=== PATIENT | male | born 1980 | race Caucasian/White ===

== ENCOUNTER 2018-01-21 14:02 | Inpatient (IN) | payer MEDICAID ==
[~2018-01-21] VITALS: Ht 182.9 cm; Wt 78.9 kg
[~2018-01-21 14:02] MED LIST: BUSP15 PO; CEPH500 PO; QUET100T PO; QUET200XR PO; SULF1TAB42 PO
[2018-01-21 17:25] VITALS: BP 115/71
[2018-01-21] MEDS ORDERED: PETROLATUM,WHITE 71 GM JELLY TP PRN (18:15)
[2018-01-21] MEDS ORDERED: ONDANSETRON HCL 4 MG TABLET PO PRN (18:15)
[2018-01-21] MEDS ORDERED: MAG HYDROX/AL HYDROX/SIMETH ES 30 ML SUSPENSION UDCUP PO PRN (18:15)
[2018-01-21] MEDS ORDERED: CloNIDine HCL 0.1 MG TABLET PO PRN (18:15)
[2018-01-21] MEDS ORDERED: LOPERAMIDE HCL 2 MG CAPSULE PO PRN (18:15)
[2018-01-21] MEDS ORDERED: NICOTINE 14 MG/24 HOUR PATCH TD PRN (18:15)
[2018-01-21] MEDS ORDERED: IBUPROFEN 400 MG TABLET PO PRN (18:15)
[2018-01-21] MEDS ORDERED: DOCUSATE SODIUM 100 MG CAPSULE PO PRN (18:15)
[2018-01-21] MEDS ORDERED: ALBUTEROL SULFATE HFA 90 MCG/PUFF 8 GM INHALER IH PRN (18:15)
[2018-01-21] MEDS ORDERED: GuaiFENesin/D-METHORPHAN [SUGAR-FREE] 200-20MG/10 ML SYRUP UDCUP PO PRN (18:15)
[2018-01-21] MEDS ORDERED: ACETAMINOPHEN 325 MG TABLET PO PRN (18:15)
[2018-01-21] MEDS ORDERED: MAGNESIUM HYDROXIDE SUSPENSION 30 ML UDCUP PO PRN (18:15)
[2018-01-22 02:45] VITALS: BP 120/81
[2018-01-22 08:00] VITALS: BP 105/68
[2018-01-22] MEDS: METHADONE HCL 10 MG TABLET PO SCH (08:49)
[2018-01-22] MEDS: NICOTINE 14 MG/24 HOUR PATCH TD SCH (08:51)
[2018-01-22] MEDS: BusPIRone HCL 15 MG TABLET PO SCH ×2 (11:43→16:12)
[2018-01-22] MEDS: LORazepam 2 MG TABLET PO PRN (12:20)
[2018-01-22] MEDS: HALOPERIDOL 5 MG TABLET PO PRN (16:20)
[2018-01-22 17:14] VITALS: BP 106/78
[2018-01-22] MEDS: QUEtiapine FUMARATE 200 MG ER TABLET PO SCH (20:00)
[2018-01-23 06:49] VITALS: BP 112/70
[2018-01-23 08:04] VITALS: BP 109/65
[2018-01-23] MEDS: METHADONE HCL 10 MG TABLET PO SCH (08:38)
[2018-01-23] MEDS: NICOTINE 14 MG/24 HOUR PATCH TD SCH ×2 (08:41→09:00)
[2018-01-23] MEDS: QUEtiapine FUMARATE 100 MG TABLET PO SCH (08:41)
[2018-01-23] MEDS: BusPIRone HCL 15 MG TABLET PO SCH ×2 (08:41→16:08)
[2018-01-23 16:05] VITALS: BP 101/60
[2018-01-23] MEDS: QUEtiapine FUMARATE 200 MG ER TABLET PO SCH (20:01)
[2018-01-23] MEDS: LORazepam 2 MG TABLET PO PRN (20:09)
[2018-01-23] MEDS: ZOLPIDEM TARTRATE 10 MG TABLET PO PRN (21:30)
[2018-01-24 06:42] VITALS: BP 110/68
[2018-01-24 08:21] VITALS: BP 98/70
[2018-01-24] MEDS: BusPIRone HCL 15 MG TABLET PO SCH ×2 (08:37→16:04)
[2018-01-24] MEDS: METHADONE HCL 10 MG TABLET PO SCH (08:38)
[2018-01-24] MEDS: QUEtiapine FUMARATE 100 MG TABLET PO SCH (08:38)
[2018-01-24 08:51] VITALS: BP 114/68
[2018-01-24] MEDS: NICOTINE 14 MG/24 HOUR PATCH TD SCH (09:00)
[2018-01-24] MEDS: LORazepam 2 MG TABLET PO PRN (11:28)
[2018-01-24] MEDS: HALOPERIDOL 5 MG TABLET PO PRN (16:04)
[2018-01-24 16:17] VITALS: BP 101/68
[2018-01-24] MEDS: QUEtiapine FUMARATE 200 MG ER TABLET PO SCH (20:05)
[2018-01-25 05:40] VITALS: BP 110/68
[2018-01-25] MEDS: METHADONE HCL 10 MG TABLET PO SCH (08:26)
[2018-01-25] MEDS: BusPIRone HCL 15 MG TABLET PO SCH ×2 (08:27→16:15)
[2018-01-25] MEDS: QUEtiapine FUMARATE 100 MG TABLET PO SCH (08:27)
[2018-01-25] MEDS: NICOTINE 14 MG/24 HOUR PATCH TD SCH (08:27)
[2018-01-25 09:30] VITALS: BP 104/61
[2018-01-25 16:09] VITALS: BP 112/67
[2018-01-25] MEDS: LORazepam 2 MG TABLET PO PRN (18:46)
[2018-01-25] MEDS: QUEtiapine FUMARATE 200 MG ER TABLET PO SCH (20:06)
[2018-01-25] MEDS: ZOLPIDEM TARTRATE 10 MG TABLET PO PRN (21:25)
[2018-01-26 00:54] VITALS: BP 102/63
[2018-01-26] MEDS: BusPIRone HCL 15 MG TABLET PO SCH ×2 (11:01→16:30)
[2018-01-26] MEDS: METHADONE HCL 10 MG TABLET PO SCH (11:01)
[2018-01-26] MEDS: QUEtiapine FUMARATE 100 MG TABLET PO SCH ×2 (11:01→12:24)
[2018-01-26] MEDS ORDERED: NICOTINE 14 MG/24 HOUR PATCH TD PRN (11:15)
[2018-01-26 16:08] VITALS: BP 100/66
[2018-01-26] MEDS: LORazepam 2 MG TABLET PO PRN (18:38)
[2018-01-26] MEDS: HALOPERIDOL 5 MG TABLET PO PRN (18:38)
[2018-01-26] MEDS: QUEtiapine FUMARATE 200 MG ER TABLET PO SCH (20:01)
[2018-01-26] MEDS: ZOLPIDEM TARTRATE 10 MG TABLET PO PRN (20:43)
[2018-01-27 02:08] VITALS: BP 110/70
[2018-01-27 08:43] VITALS: BP 108/65
[2018-01-27] MEDS: BusPIRone HCL 15 MG TABLET PO SCH ×2 (08:56→16:06)
[2018-01-27] MEDS: QUEtiapine FUMARATE 100 MG TABLET PO SCH ×2 (08:56→12:41)
[2018-01-27] MEDS: METHADONE HCL 10 MG TABLET PO SCH (08:57)
[2018-01-27] MEDS: LORazepam 2 MG TABLET PO PRN (12:03)
[2018-01-27] MEDS: HALOPERIDOL 5 MG TABLET PO PRN (12:03)
[2018-01-27 16:34] VITALS: BP 109/68
[2018-01-27] MEDS: QUEtiapine FUMARATE 200 MG ER TABLET PO SCH (20:03)
[2018-01-27] MEDS: ZOLPIDEM TARTRATE 10 MG TABLET PO PRN (20:43)
[2018-01-28] MEDS ORDERED: QUET200XR PO (02:16)
[2018-01-28] MEDS ORDERED: QUET100T PO ×3 (02:16)
[2018-01-28] MEDS ORDERED: BUSP15 PO (02:16)
[2018-01-28 05:14] VITALS: BP 120/86
== END 2018-01-28 07:32 | disposition home or self-care (01) | DRG 753 ==
LOC: B2S 17:06
PROVIDERS: ADMIT Psychiatry & Neurology Child & Adolescent Psychiatry; ATTEND Psychiatry & Neurology Child & Adolescent Psychiatry
DX: F31.5 Bipolar disorder, current episode depressed, severe, with psychotic features (principal); R45.851 Suicidal ideations; F11.20 Opioid dependence, uncomplicated; M47.9 Spondylosis, unspecified; F41.9 Anxiety disorder, unspecified; F15.90 Other stimulant use, unspecified, uncomplicated; G47.00 Insomnia, unspecified; Z71.51 Drug abuse counseling and surveillance of drug abuser; Z59.0 Homelessness; Z88.0 Allergy status to penicillin; Z79.899 Other long term (current) drug therapy
CPT/HCPCS: 87081

== ENCOUNTER 2018-01-29 17:25 | Inpatient (IN) | payer MEDICAID ==
[~2018-01-29] VITALS: Ht 185.4 cm; Wt 78.7 kg
[~2018-01-29 17:25] MED LIST changes: -CEPH500 PO; -SULF1TAB42 PO
[2018-01-29 18:43] VITALS: BP 128/94
[2018-01-29 18:55] VITALS: BP 118/88
[2018-01-29] MEDS: LORazepam 2 MG TABLET PO PRN (19:14)
[2018-01-29] MEDS: HALOPERIDOL 5 MG TABLET PO PRN (20:03)
[2018-01-29] MEDS ORDERED: MAG HYDROX/AL HYDROX/SIMETH ES 30 ML SUSPENSION UDCUP PO PRN (20:15)
[2018-01-29] MEDS ORDERED: NICOTINE 14 MG/24 HOUR PATCH TD PRN (20:15)
[2018-01-29] MEDS ORDERED: CloNIDine HCL 0.1 MG TABLET PO PRN (20:15)
[2018-01-29] MEDS ORDERED: ONDANSETRON HCL 4 MG TABLET PO PRN (20:15)
[2018-01-29] MEDS ORDERED: DOCUSATE SODIUM 100 MG CAPSULE PO PRN (20:15)
[2018-01-29] MEDS ORDERED: MAGNESIUM HYDROXIDE SUSPENSION 30 ML UDCUP PO PRN (20:15)
[2018-01-29] MEDS ORDERED: IBUPROFEN 400 MG TABLET PO PRN (20:15)
[2018-01-29] MEDS ORDERED: GuaiFENesin/D-METHORPHAN [SUGAR-FREE] 200-20MG/10 ML SYRUP UDCUP PO PRN (20:15)
[2018-01-29] MEDS ORDERED: ALBUTEROL SULFATE HFA 90 MCG/PUFF 8 GM INHALER IH PRN (20:15)
[2018-01-29] MEDS ORDERED: LOPERAMIDE HCL 2 MG CAPSULE PO PRN (20:15)
[2018-01-29] MEDS ORDERED: ACETAMINOPHEN 325 MG TABLET PO PRN (20:15)
[2018-01-29] MEDS ORDERED: PETROLATUM,WHITE 71 GM JELLY TP PRN (20:15)
[2018-01-29] MEDS: ZOLPIDEM TARTRATE 10 MG TABLET PO PRN (20:25)
[2018-01-30 05:37] VITALS: BP 122/84
[2018-01-30 08:14] VITALS: BP 104/64
[2018-01-30] MEDS: NEOMYCIN/BACITRACIN/POLYMYXIN B 30 GM OINTMENT TP SCH ×2 (08:41→16:14)
[2018-01-30] MEDS: METHADONE HCL 10 MG/5 ML SOLUTION ORAL.SYG PO SCH (08:42)
[2018-01-30] MEDS ORDERED: METHADONE HCL 10 MG TABLET PO SCH (09:00)
[2018-01-30] MEDS ORDERED: BACITRACIN 28.4 GM OINTMENT TP SCH (09:00)
[2018-01-30] MEDS: BusPIRone HCL 15 MG TABLET PO SCH ×2 (11:51→16:13)
[2018-01-30] MEDS: QUEtiapine FUMARATE 100 MG TABLET PO SCH (11:51)
[2018-01-30 16:11] VITALS: BP 101/61
[2018-01-30] MEDS: QUEtiapine FUMARATE 200 MG ER TABLET PO SCH (20:29)
[2018-01-30] MEDS: CEPHALEXIN MONOHYDRATE 500 MG CAPSULE PO SCH (20:29)
[2018-01-30] MEDS: LORazepam 2 MG TABLET PO PRN (20:29)
[2018-01-31 01:52] VITALS: BP 108/68
[2018-01-31 08:01] VITALS: BP 98/60
[2018-01-31] MEDS: METHADONE HCL 10 MG/5 ML SOLUTION ORAL.SYG PO SCH (08:25)
[2018-01-31] MEDS: QUEtiapine FUMARATE 100 MG TABLET PO SCH ×2 (08:30→11:56)
[2018-01-31] MEDS: CEPHALEXIN MONOHYDRATE 500 MG CAPSULE PO SCH ×4 (08:31→20:44)
[2018-01-31] MEDS: BusPIRone HCL 15 MG TABLET PO SCH ×2 (08:31→16:14)
[2018-01-31 08:53] VITALS: BP 100/72
[2018-01-31] MEDS: NEOMYCIN/BACITRACIN/POLYMYXIN B 30 GM OINTMENT TP SCH ×2 (09:22→16:14)
[2018-01-31 16:03] VITALS: BP 102/72
[2018-01-31] MEDS: LORazepam 2 MG TABLET PO PRN (20:44)
[2018-01-31] MEDS: QUEtiapine FUMARATE 200 MG ER TABLET PO SCH (20:44)
[2018-02-01 00:03] VITALS: BP 109/62
[2018-02-01 08:00] VITALS: BP 118/72
[2018-02-01] MEDS: CEPHALEXIN MONOHYDRATE 500 MG CAPSULE PO SCH ×4 (09:01→20:10)
[2018-02-01] MEDS: QUEtiapine FUMARATE 100 MG TABLET PO SCH ×2 (09:01→12:07)
[2018-02-01] MEDS: METHADONE HCL 10 MG/5 ML SOLUTION ORAL.SYG PO SCH (09:01)
[2018-02-01] MEDS: NEOMYCIN/BACITRACIN/POLYMYXIN B 30 GM OINTMENT TP SCH ×2 (09:02→16:53)
[2018-02-01] MEDS: BusPIRone HCL 15 MG TABLET PO SCH ×2 (09:02→16:05)
[2018-02-01] MEDS: HALOPERIDOL 5 MG TABLET PO PRN (16:05)
[2018-02-01] MEDS: LORazepam 2 MG TABLET PO PRN (16:05)
[2018-02-01 16:07] VITALS: BP 118/80
[2018-02-01] MEDS: QUEtiapine FUMARATE 200 MG ER TABLET PO SCH (20:10)
[2018-02-01] MEDS: ZOLPIDEM TARTRATE 10 MG TABLET PO PRN (20:41)
[2018-02-02] VITALS: BP 113/70
[2018-02-02 08:08] VITALS: BP 100/60
[2018-02-02] MEDS: METHADONE HCL 10 MG/5 ML SOLUTION ORAL.SYG PO SCH (08:57)
[2018-02-02] MEDS: BusPIRone HCL 15 MG TABLET PO SCH ×2 (08:59→16:10)
[2018-02-02] MEDS: NEOMYCIN/BACITRACIN/POLYMYXIN B 30 GM OINTMENT TP SCH ×2 (09:00→17:44)
[2018-02-02] MEDS: QUEtiapine FUMARATE 100 MG TABLET PO SCH ×2 (09:00→12:11)
[2018-02-02] MEDS: CEPHALEXIN MONOHYDRATE 500 MG CAPSULE PO SCH ×4 (09:00→20:29)
[2018-02-02] MEDS: LORazepam 2 MG TABLET PO PRN (13:21)
[2018-02-02 16:09] VITALS: BP 121/65
[2018-02-02] MEDS: QUEtiapine FUMARATE 200 MG ER TABLET PO SCH (20:29)
[2018-02-02] MEDS: ZOLPIDEM TARTRATE 10 MG TABLET PO PRN (20:29)
[2018-02-03 01:14] VITALS: BP 113/60
[2018-02-03 08:15] VITALS: BP 100/61
[2018-02-03] MEDS: METHADONE HCL 10 MG/5 ML SOLUTION ORAL.SYG PO SCH (09:18)
[2018-02-03] MEDS: BusPIRone HCL 15 MG TABLET PO SCH ×2 (09:18→16:01)
[2018-02-03] MEDS: CEPHALEXIN MONOHYDRATE 500 MG CAPSULE PO SCH ×4 (09:19→20:25)
[2018-02-03] MEDS: QUEtiapine FUMARATE 100 MG TABLET PO SCH ×2 (09:19→12:24)
[2018-02-03] MEDS: NEOMYCIN/BACITRACIN/POLYMYXIN B 30 GM OINTMENT TP SCH ×2 (09:19→16:01)
[2018-02-03] MEDS: LORazepam 2 MG TABLET PO PRN ×2 (11:29→21:13)
[2018-02-03 16:00] VITALS: BP 103/63
[2018-02-03] MEDS: QUEtiapine FUMARATE 200 MG ER TABLET PO SCH (20:21)
[2018-02-03] MEDS: HALOPERIDOL 5 MG TABLET PO PRN (21:12)
[2018-02-03] MEDS: ZOLPIDEM TARTRATE 10 MG TABLET PO PRN (22:40)
[2018-02-04 01:27] VITALS: BP 102/63
[2018-02-04 08:23] VITALS: BP 107/53
[2018-02-04] MEDS: METHADONE HCL 10 MG/5 ML SOLUTION ORAL.SYG PO SCH (08:58)
[2018-02-04] MEDS: QUEtiapine FUMARATE 100 MG TABLET PO SCH ×2 (08:59→12:15)
[2018-02-04] MEDS: BusPIRone HCL 15 MG TABLET PO SCH ×2 (09:00→17:11)
[2018-02-04] MEDS: CEPHALEXIN MONOHYDRATE 500 MG CAPSULE PO SCH ×4 (09:00→21:23)
[2018-02-04] MEDS: NEOMYCIN/BACITRACIN/POLYMYXIN B 30 GM OINTMENT TP SCH ×2 (09:00→17:11)
[2018-02-04] MEDS: LORazepam 2 MG TABLET PO PRN ×2 (15:00→21:22)
[2018-02-04 19:30] VITALS: BP 97/62
[2018-02-04] MEDS: QUEtiapine FUMARATE 200 MG ER TABLET PO SCH (21:22)
[2018-02-04] MEDS: HALOPERIDOL 5 MG TABLET PO PRN (21:23)
[2018-02-04] MEDS: ZOLPIDEM TARTRATE 10 MG TABLET PO PRN (21:23)
[2018-02-05 01:44] VITALS: BP 109/68
[2018-02-05 08:54] VITALS: BP 115/62
[2018-02-05] MEDS: NEOMYCIN/BACITRACIN/POLYMYXIN B 30 GM OINTMENT TP SCH ×2 (09:00→17:51)
[2018-02-05] MEDS: QUEtiapine FUMARATE 100 MG TABLET PO SCH ×2 (09:02→12:26)
[2018-02-05] MEDS: METHADONE HCL 10 MG/5 ML SOLUTION ORAL.SYG PO SCH (09:02)
[2018-02-05] MEDS: CEPHALEXIN MONOHYDRATE 500 MG CAPSULE PO SCH ×4 (09:02→20:56)
[2018-02-05] MEDS: BusPIRone HCL 15 MG TABLET PO SCH ×2 (09:02→16:26)
[2018-02-05 16:18] VITALS: BP 104/65
[2018-02-05] MEDS: LORazepam 2 MG TABLET PO PRN (16:29)
[2018-02-05] MEDS: QUEtiapine FUMARATE 200 MG ER TABLET PO SCH (20:56)
[2018-02-06 01:05] VITALS: BP 105/63
[2018-02-06 05:00] VITALS: BP 106/71
[2018-02-06] MEDS: LORazepam 2 MG TABLET PO PRN ×2 (06:20→22:09)
[2018-02-06 08:23] VITALS: BP 112/60
[2018-02-06] MEDS: METHADONE HCL 10 MG/5 ML SOLUTION ORAL.SYG PO SCH (08:44)
[2018-02-06] MEDS: BusPIRone HCL 15 MG TABLET PO SCH ×3 (08:45→17:24)
[2018-02-06] MEDS: NEOMYCIN/BACITRACIN/POLYMYXIN B 30 GM OINTMENT TP SCH ×2 (08:46→17:24)
[2018-02-06] MEDS: QUEtiapine FUMARATE 100 MG TABLET PO SCH ×2 (08:46→12:06)
[2018-02-06] MEDS: CEPHALEXIN MONOHYDRATE 500 MG CAPSULE PO SCH ×3 (08:46→17:24)
[2018-02-06 16:14] VITALS: BP 108/78
[2018-02-06] MEDS: HALOPERIDOL 5 MG TABLET PO PRN (17:30)
[2018-02-06] MEDS: ZOLPIDEM TARTRATE 10 MG TABLET PO PRN (20:56)
[2018-02-06] MEDS: QUEtiapine FUMARATE 200 MG ER TABLET PO SCH (20:56)
[2018-02-07 01:00] VITALS: BP 116/74
[2018-02-07] MEDS: METHADONE HCL 10 MG/5 ML SOLUTION ORAL.SYG PO SCH (08:31)
[2018-02-07 08:35] VITALS: BP 111/64
[2018-02-07] MEDS: BusPIRone HCL 15 MG TABLET PO SCH ×3 (08:42→16:18)
[2018-02-07] MEDS: NEOMYCIN/BACITRACIN/POLYMYXIN B 30 GM OINTMENT TP SCH ×2 (08:43→17:13)
[2018-02-07] MEDS: QUEtiapine FUMARATE 200 MG TABLET PO SCH ×2 (08:43→16:18)
[2018-02-07] MEDS: HALOPERIDOL 5 MG TABLET PO PRN (10:21)
[2018-02-07] MEDS: LORazepam 2 MG TABLET PO PRN (10:21)
[2018-02-07 16:37] VITALS: BP 105/70
[2018-02-08 04:55] VITALS: BP 107/76
[2018-02-08] MEDS: LORazepam 2 MG TABLET PO PRN (07:03)
[2018-02-08 08:27] VITALS: BP 112/73
[2018-02-08] MEDS: BusPIRone HCL 15 MG TABLET PO SCH ×3 (09:57→16:47)
[2018-02-08] MEDS: QUEtiapine FUMARATE 200 MG TABLET PO SCH ×3 (09:58→16:48)
[2018-02-08] MEDS: METHADONE HCL 10 MG/5 ML SOLUTION ORAL.SYG PO SCH (09:59)
[2018-02-08] MEDS: NEOMYCIN/BACITRACIN/POLYMYXIN B 30 GM OINTMENT TP SCH ×2 (10:00→16:48)
[2018-02-08 16:33] VITALS: BP 103/63
[2018-02-09 00:50] VITALS: BP 110/74
[2018-02-09] MEDS: HALOPERIDOL 5 MG TABLET PO PRN (00:56)
[2018-02-09 08:11] VITALS: BP 104/68
[2018-02-09] MEDS: BusPIRone HCL 15 MG TABLET PO SCH (08:32)
[2018-02-09] MEDS: QUEtiapine FUMARATE 200 MG TABLET PO SCH (08:32)
== END 2018-02-09 12:15 | disposition home or self-care (01) | DRG 753 ==
LOC: B2S 18:34
PROVIDERS: ATTEND Psychiatry & Neurology Child & Adolescent Psychiatry
DX: F31.5 Bipolar disorder, current episode depressed, severe, with psychotic features (principal); R45.851 Suicidal ideations; Z59.0 Homelessness; F11.90 Opioid use, unspecified, uncomplicated; F15.90 Other stimulant use, unspecified, uncomplicated; F41.0 Panic disorder [episodic paroxysmal anxiety]; G47.00 Insomnia, unspecified; Z91.5 Personal history of self-harm; Z53.20 Procedure and treatment not carried out because of patient's decision for unspecified reasons
CPT/HCPCS: 87081

== ENCOUNTER 2018-02-10 13:57 | Inpatient (IN) | payer MEDICAID ==
[~2018-02-10] VITALS: Ht 185.4 cm; Wt 86.0 kg
[~2018-02-10 13:57] MED LIST changes: -QUET100T PO
[2018-02-10 15:44] VITALS: BP 107/82
[2018-02-10 17:20] VITALS: BP 120/86
[2018-02-10] MEDS ORDERED: MAG HYDROX/AL HYDROX/SIMETH ES 30 ML SUSPENSION UDCUP PO PRN (20:30)
[2018-02-10] MEDS ORDERED: ACETAMINOPHEN 325 MG TABLET PO PRN (20:30)
[2018-02-10] MEDS ORDERED: LOPERAMIDE HCL 2 MG CAPSULE PO PRN (20:30)
[2018-02-10] MEDS ORDERED: IBUPROFEN 400 MG TABLET PO PRN (20:30)
[2018-02-10] MEDS ORDERED: ALBUTEROL SULFATE HFA 90 MCG/PUFF 8 GM INHALER IH PRN (20:30)
[2018-02-10] MEDS ORDERED: ONDANSETRON HCL 4 MG TABLET PO PRN (20:30)
[2018-02-10] MEDS ORDERED: MAGNESIUM HYDROXIDE SUSPENSION 30 ML UDCUP PO PRN (20:30)
[2018-02-10] MEDS ORDERED: DOCUSATE SODIUM 100 MG CAPSULE PO PRN (20:30)
[2018-02-10] MEDS ORDERED: GuaiFENesin/D-METHORPHAN [SUGAR-FREE] 200-20MG/10 ML SYRUP UDCUP PO PRN (20:30)
[2018-02-10] MEDS ORDERED: CloNIDine HCL 0.1 MG TABLET PO PRN (20:30)
[2018-02-10] MEDS ORDERED: NICOTINE 14 MG/24 HOUR PATCH TD PRN (20:30)
[2018-02-10] MEDS ORDERED: PETROLATUM,WHITE 71 GM JELLY TP PRN (20:30)
[2018-02-10 20:32] VITALS: BP 110/77
[2018-02-11 03:12] VITALS: BP 101/73
[2018-02-11 07:41] LABS: BASOPHILS % (AUTO) 0.6 % (0.0-2.0); EOSINOPHILS % (AUTO) 3.2 % (1.0-6.0); HEMATOCRIT 35.3 % (41-53); HEMOGLOBIN 12.3 g/dL (13.5-17.5); LYMPHOCYTES # (AUTO) 1.4 K/uL (1.0-4.8); LYMPHOCYTES % (AUTO) 32.9 % (22.0-44.0); MEAN CORPUSCULAR HEMOGLOBIN 31.3 pg (26.0-34.0); MEAN CORPUSCULAR HGB CONC 34.9 G/dL (31.0-37.0); MEAN CORPUSCULAR VOLUME 90 fL (80-100); MONOCYTES # (AUTO) 0.6 K/uL (0.1-1.0); MONOCYTES % (AUTO) 12.8 % (2.0-9.0); NEUTROPHILS # (AUTO) 2.2 K/uL (1.8-7.7); NEUTROPHILS % (AUTO) 50.5 % (40.0-70.0); PLATELET COUNT (AUTO) 197 K/uL (150-450); RED BLOOD CELL COUNT(AUTO) 3.95 MIL/uL (4.50-5.90); RED CELL DISTRIBUTION WIDTH 14.6 % (11.5-14.5)
[2018-02-11 08:05] LABS: ALANINE AMINOTRANSFERASE 160 U/L (12-78); ALBUMIN 2.9 g/dL (3.4-5.0); ALKALINE PHOSPHATASE 73 U/L (46-116); ANION GAP 5 mmol/L (8-16); ASPARTATE AMINOTRANSFERASE 92 U/L (15-37); BILIRUBIN,TOTAL 0.4 mg/dL (0.1-1.0); CALCIUM, TOTAL 8.7 mg/dL (8.8-10.5); CARBON DIOXIDE 31 mmol/L (22-29); CHLORIDE 101 mmol/L (98-107); CHOL/HDL RATIO 3.2 (4.2-7.3); CHOLESTEROL 183 mg/dL (131-200); CREATININE 0.86 mg/dL (0.60-1.30); FREE T4 (FREE THYROXINE) 0.63 ng/dL (0.76-1.46); GLOMERULAR FILTR. RATE CALC > 60 mL/min (>60); GLUCOSE,RANDOM 92 mg/dL (70-110); HDL CHOLESTEROL 58 mg/dL (40-60); LDL CHOL (CALC.) 102 mg/dL (0-130); POTASSIUM 4.1 mmol/L (3.5-5.1); SODIUM SERUM 137 mmol/L (136-145); THYROID STIMULATING HORMONE 2.99 uIU/mL (0.36-3.74); TOTAL PROTEIN, SERUM 7.3 g/dL (6.4-8.2); TRIGLYCERIDES 116 mg/dL (15-150); UREA NITROGEN, BLOOD 18 mg/dL (7-18)
[2018-02-11 08:38] VITALS: BP 105/62
[2018-02-11] MEDS: NICOTINE 21 MG/24 HOUR PATCH TD SCH (08:55)
[2018-02-11] MEDS: QUEtiapine FUMARATE 200 MG ER TABLET PO SCH ×2 (11:20→16:09)
[2018-02-11] MEDS: FERROUS SULFATE 325 MG EC TABLET PO SCH ×2 (11:34→16:08)
[2018-02-11] MEDS: BusPIRone HCL 15 MG TABLET PO SCH ×2 (13:10→16:08)
[2018-02-11 16:16] VITALS: BP 132/81
[2018-02-12 01:08] VITALS: BP 108/63
[2018-02-12] MEDS: FERROUS SULFATE 325 MG EC TABLET PO SCH ×3 (07:08→16:09)
[2018-02-12 07:55] LABS: APPEARANCE,URINE CLEAR (CLEAR); BILIRUBIN,URINE NEGATIVE (NEGATIVE); GLUCOSE, URINE (UA) NEGATIVE (NEGATIVE); KETONES,URINE NEGATIVE (NEGATIVE); LEUKOCYTE ESTERASE ,URINE TRACE (NEGATIVE); NITRATE,URINE NEGATIVE (NEGATIVE); OCCULT BLOOD,URINE NEGATIVE (NEGATIVE); PH,URINE 6.5 (5.0-8.0); PROTEIN,URINE NEGATIVE (NEGATIVE)
[2018-02-12 08:25] LABS: BACTERIA,URINE None Seen /HPF (None Seen); RBC,URINE None Seen /HPF (0-2); SQUAMOUS EPITHELIAL CELL,UR Rare /LPF (None Seen); WBC,URINE 0-2 /HPF (0-5)
[2018-02-12] MEDS: NICOTINE 21 MG/24 HOUR PATCH TD SCH (08:31)
[2018-02-12] MEDS: QUEtiapine FUMARATE 200 MG ER TABLET PO SCH ×2 (08:31→16:09)
[2018-02-12] MEDS: BusPIRone HCL 15 MG TABLET PO SCH ×3 (08:31→16:09)
[2018-02-12 08:34] VITALS: BP 100/70
[2018-02-12 15:22] LABS: AMPHET/METH SCREEN,URINE NEGATIVE (NEGATIVE); BARBITURATE SCREEN, URINE NEGATIVE (NEGATIVE); BENZODIAZEPINES SCREEN,URINE POSITIVE (NEGATIVE); CANNABINOID SCREEN,URINE NEGATIVE (NEGATIVE); COCAINE SCREEN,URINE NEGATIVE (NEGATIVE); METHADONE SCREEN, URINE POSITIVE (NEGATIVE); OPIATE SCREEN,URINE POSITIVE (NEGATIVE); PHENCYCLIDINE SCREEN,URINE NEGATIVE (NEGATIVE)
[2018-02-12] MEDS ORDERED: METHADONE HCL 10 MG TABLET PO ONE (16:00)
[2018-02-12 16:50] VITALS: BP 115/67
[2018-02-12] MEDS: LORazepam 1 MG TABLET PO PRN (18:58)
[2018-02-13] MEDS: FERROUS SULFATE 325 MG EC TABLET PO SCH ×3 (06:49→16:35)
[2018-02-13 08:47] VITALS: BP 107/62
[2018-02-13] MEDS: NICOTINE 21 MG/24 HOUR PATCH TD SCH (09:00)
[2018-02-13] MEDS: QUEtiapine FUMARATE 200 MG ER TABLET PO SCH ×2 (09:30→16:35)
[2018-02-13] MEDS: BusPIRone HCL 15 MG TABLET PO SCH ×3 (09:31→16:35)
[2018-02-13] MEDS: METHADONE HCL 10 MG TABLET PO SCH (09:31)
[2018-02-13] MEDS: LORazepam 1 MG TABLET PO PRN ×2 (11:03→15:54)
[2018-02-13 16:22] VITALS: BP 112/73
[2018-02-14 03:35] VITALS: BP 117/80
[2018-02-14] MEDS: FERROUS SULFATE 325 MG EC TABLET PO SCH ×3 (06:25→16:50)
[2018-02-14 08:14] VITALS: BP 110/78
[2018-02-14] MEDS: NICOTINE 21 MG/24 HOUR PATCH TD SCH (09:00)
[2018-02-14] MEDS: QUEtiapine FUMARATE 200 MG ER TABLET PO SCH ×2 (09:18→16:48)
[2018-02-14] MEDS: METHADONE HCL 10 MG TABLET PO SCH (09:18)
[2018-02-14] MEDS: BusPIRone HCL 15 MG TABLET PO SCH ×3 (09:18→16:48)
[2018-02-14] MEDS: LORazepam 1 MG TABLET PO PRN ×3 (13:10→21:49)
[2018-02-14 17:27] VITALS: BP 110/80
[2018-02-15 04:07] VITALS: BP 100/72
[2018-02-15] MEDS: FERROUS SULFATE 325 MG EC TABLET PO SCH ×3 (06:33→16:09)
[2018-02-15 08:25] VITALS: BP 102/62
[2018-02-15] MEDS: NICOTINE 21 MG/24 HOUR PATCH TD SCH (09:00)
[2018-02-15] MEDS: BusPIRone HCL 15 MG TABLET PO SCH ×3 (09:28→16:09)
[2018-02-15] MEDS: QUEtiapine FUMARATE 200 MG ER TABLET PO SCH ×2 (09:28→16:09)
[2018-02-15] MEDS: METHADONE HCL 10 MG TABLET PO SCH (09:29)
[2018-02-15 10:00] VITALS: BP 118/88
[2018-02-15] MEDS: LORazepam 1 MG TABLET PO PRN ×3 (10:18→20:07)
[2018-02-15 16:34] VITALS: BP 108/62
[2018-02-16 05:26] VITALS: BP 114/72
[2018-02-16] MEDS: FERROUS SULFATE 325 MG EC TABLET PO SCH ×2 (06:41→11:18)
[2018-02-16] MEDS ORDERED: FERR325T22 PO (08:00)
[2018-02-16 08:20] VITALS: BP 115/69
[2018-02-16] MEDS: QUEtiapine FUMARATE 200 MG ER TABLET PO SCH (08:25)
[2018-02-16] MEDS: BusPIRone HCL 15 MG TABLET PO SCH ×2 (08:25→12:25)
[2018-02-16] MEDS: METHADONE HCL 10 MG TABLET PO SCH (08:25)
[2018-02-16 08:27] LABS: BASOPHILS % (AUTO) 0.6 % (0.0-2.0); EOSINOPHILS % (AUTO) 3.7 % (1.0-6.0); HEMATOCRIT 37.6 % (41-53); LYMPHOCYTES # (AUTO) 1.5 K/uL (1.0-4.8); LYMPHOCYTES % (AUTO) 39.8 % (22.0-44.0); MEAN CORPUSCULAR HEMOGLOBIN 30.8 pg (26.0-34.0); MEAN CORPUSCULAR HGB CONC 34.5 G/dL (31.0-37.0); MEAN CORPUSCULAR VOLUME 90 fL (80-100); MONOCYTES # (AUTO) 0.6 K/uL (0.1-1.0); MONOCYTES % (AUTO) 14.5 % (2.0-9.0); NEUTROPHILS # (AUTO) 1.6 K/uL (1.8-7.7); NEUTROPHILS % (AUTO) 41.4 % (40.0-70.0); PLATELET COUNT (AUTO) 231 K/uL (150-450); RED CELL DISTRIBUTION WIDTH 14.6 % (11.5-14.5)
[2018-02-16] MEDS: NICOTINE 21 MG/24 HOUR PATCH TD SCH (08:30)
[2018-02-16] MEDS: LORazepam 1 MG TABLET PO PRN (08:30)
== END 2018-02-16 14:10 | disposition home or self-care (01) | DRG 753 ==
LOC: B2S 16:26
PROVIDERS: ADMIT Psychiatry & Neurology Child & Adolescent Psychiatry; ATTEND Psychiatry & Neurology Child & Adolescent Psychiatry
DX: F31.4 Bipolar disorder, current episode depressed, severe, without psychotic features (principal); F11.20 Opioid dependence, uncomplicated; F41.9 Anxiety disorder, unspecified; D64.9 Anemia, unspecified; G47.00 Insomnia, unspecified; D72.819 Decreased white blood cell count, unspecified; F19.10 Other psychoactive substance abuse, uncomplicated; B19.20 Unspecified viral hepatitis C without hepatic coma; F15.90 Other stimulant use, unspecified, uncomplicated; F20.9 Schizophrenia, unspecified; M19.90 Unspecified osteoarthritis, unspecified site; Z71.51 Drug abuse counseling and surveillance of drug abuser; Z88.0 Allergy status to penicillin
CPT/HCPCS: 80307; 83036; 84439; 84443; 87081

== ENCOUNTER 2018-02-22 15:22 | Inpatient (IN) | payer MEDICAID ==
[~2018-02-22] VITALS: Ht 185.4 cm; Wt 85.8 kg
[~2018-02-22 15:22] MED LIST changes: +FERR325T22 PO
[2018-02-22 16:46] VITALS: BP 129/75
[2018-02-22] MEDS: LORazepam 2 MG TABLET PO PRN (17:29)
[2018-02-22] MEDS ORDERED: IBUPROFEN 400 MG TABLET PO PRN (19:30)
[2018-02-22] MEDS ORDERED: MAG HYDROX/AL HYDROX/SIMETH ES 30 ML SUSPENSION UDCUP PO PRN (19:30)
[2018-02-22] MEDS ORDERED: PETROLATUM,WHITE 71 GM JELLY TP PRN (19:30)
[2018-02-22] MEDS ORDERED: CloNIDine HCL 0.1 MG TABLET PO PRN (19:30)
[2018-02-22] MEDS ORDERED: LOPERAMIDE HCL 2 MG CAPSULE PO PRN (19:30)
[2018-02-22] MEDS ORDERED: ALBUTEROL SULFATE HFA 90 MCG/PUFF 8 GM INHALER IH PRN (19:30)
[2018-02-22] MEDS ORDERED: GuaiFENesin/D-METHORPHAN [SUGAR-FREE] 200-20MG/10 ML SYRUP UDCUP PO PRN (19:30)
[2018-02-22] MEDS ORDERED: ACETAMINOPHEN 325 MG TABLET PO PRN (19:30)
[2018-02-22] MEDS ORDERED: MAGNESIUM HYDROXIDE SUSPENSION 30 ML UDCUP PO PRN (19:30)
[2018-02-22] MEDS ORDERED: DOCUSATE SODIUM 100 MG CAPSULE PO PRN (19:30)
[2018-02-22] MEDS ORDERED: NICOTINE POLACRILEX 2 MG LOZENGE PO PRN (19:30)
[2018-02-22] MEDS ORDERED: ONDANSETRON HCL 4 MG TABLET PO PRN (19:30)
[2018-02-22] MEDS: ZOLPIDEM TARTRATE 10 MG TABLET PO PRN (20:11)
[2018-02-23 02:22] VITALS: BP 106/60
[2018-02-23 06:15] VITALS: BP 108/84
[2018-02-23] MEDS: LORazepam 2 MG TABLET PO PRN ×3 (06:31→16:44)
[2018-02-23 08:13] VITALS: BP 100/62
[2018-02-23 08:35] LABS: BASOPHILS % (AUTO) 0.5 % (0.0-2.0); EOSINOPHILS % (AUTO) 4.5 % (1.0-6.0); HEMATOCRIT 37.3 % (41-53); HEMOGLOBIN 12.7 g/dL (13.5-17.5); LYMPHOCYTES # (AUTO) 1.5 K/uL (1.0-4.8); LYMPHOCYTES % (AUTO) 45.2 % (22.0-44.0); MEAN CORPUSCULAR HEMOGLOBIN 31.2 pg (26.0-34.0); MEAN CORPUSCULAR HGB CONC 34.2 G/dL (31.0-37.0); MEAN CORPUSCULAR VOLUME 92 fL (80-100); MONOCYTES # (AUTO) 0.5 K/uL (0.1-1.0); MONOCYTES % (AUTO) 15.4 % (2.0-9.0); NEUTROPHILS # (AUTO) 1.1 K/uL (1.8-7.7); NEUTROPHILS % (AUTO) 34.4 % (40.0-70.0); PLATELET COUNT (AUTO) 256 K/uL (150-450); RED BLOOD CELL COUNT(AUTO) 4.08 MIL/uL (4.50-5.90); RED CELL DISTRIBUTION WIDTH 15.1 % (11.5-14.5)
[2018-02-23 08:41] LABS: HEMOGLOBIN A1C 4.9 % (4.5-6.2)
[2018-02-23 08:44] LABS: AMPHET/METH SCREEN,URINE POSITIVE (NEGATIVE); BARBITURATE SCREEN, URINE NEGATIVE (NEGATIVE); BENZODIAZEPINES SCREEN,URINE NEGATIVE (NEGATIVE); CANNABINOID SCREEN,URINE NEGATIVE (NEGATIVE); COCAINE SCREEN,URINE NEGATIVE (NEGATIVE); METHADONE SCREEN, URINE POSITIVE (NEGATIVE); OPIATE SCREEN,URINE POSITIVE (NEGATIVE)
[2018-02-23 08:48] LABS: PHENCYCLIDINE SCREEN,URINE NEGATIVE (NEGATIVE)
[2018-02-23] MEDS: NICOTINE 21 MG/24 HOUR PATCH TD SCH (09:00)
[2018-02-23] MEDS ORDERED: METHADONE HCL 10 MG TABLET PO SCH (09:00)
[2018-02-23 09:04] LABS: APPEARANCE,URINE TURBID (CLEAR); BILIRUBIN,URINE NEGATIVE (NEGATIVE); GLUCOSE, URINE (UA) NEGATIVE (NEGATIVE); KETONES,URINE NEGATIVE (NEGATIVE); LEUKOCYTE ESTERASE ,URINE NEGATIVE (NEGATIVE); NITRATE,URINE NEGATIVE (NEGATIVE); OCCULT BLOOD,URINE NEGATIVE (NEGATIVE); PROTEIN,URINE NEGATIVE (NEGATIVE)
[2018-02-23 09:14] LABS: ALANINE AMINOTRANSFERASE 247 U/L (12-78); ALBUMIN 3.2 g/dL (3.4-5.0); ALKALINE PHOSPHATASE 83 U/L (46-116); ANION GAP 6 mmol/L (8-16); ASPARTATE AMINOTRANSFERASE 133 U/L (15-37); BILIRUBIN,TOTAL 0.5 mg/dL (0.1-1.0); CALCIUM, TOTAL 8.9 mg/dL (8.8-10.5); CARBON DIOXIDE 29 mmol/L (22-29); CHLORIDE 102 mmol/L (98-107); CHOL/HDL RATIO 2.8 (4.2-7.3); CHOLESTEROL 171 mg/dL (131-200); CREATININE 0.74 mg/dL (0.60-1.30); FREE T4 (FREE THYROXINE) 0.77 ng/dL (0.76-1.46); GLOMERULAR FILTR. RATE CALC > 60 mL/min (>60); GLUCOSE,RANDOM 83 mg/dL (70-110); HDL CHOLESTEROL 62 mg/dL (40-60); LDL CHOL (CALC.) 94 mg/dL (0-130); POTASSIUM 4.5 mmol/L (3.5-5.1); SODIUM SERUM 137 mmol/L (136-145); THYROID STIMULATING HORMONE 3.41 uIU/mL (0.36-3.74); TOTAL PROTEIN, SERUM 7.7 g/dL (6.4-8.2); TRIGLYCERIDES 73 mg/dL (15-150); UREA NITROGEN, BLOOD 18 mg/dL (7-18)
[2018-02-23] MEDS: HALOPERIDOL 5 MG TABLET PO PRN (12:00)
[2018-02-23] MEDS: BusPIRone HCL 15 MG TABLET PO SCH ×2 (12:00→16:19)
[2018-02-23] MEDS: QUEtiapine FUMARATE 200 MG ER TABLET PO SCH (16:19)
[2018-02-23 16:23] VITALS: BP 104/57
[2018-02-24 02:06] VITALS: BP 113/64
[2018-02-24 08:07] VITALS: BP 116/81
[2018-02-24] MEDS: NICOTINE 21 MG/24 HOUR PATCH TD SCH (09:00)
[2018-02-24] MEDS: METHADONE HCL 10 MG TABLET PO SCH (09:41)
[2018-02-24] MEDS: QUEtiapine FUMARATE 200 MG ER TABLET PO SCH ×2 (09:42→16:37)
[2018-02-24] MEDS: BusPIRone HCL 15 MG TABLET PO SCH ×3 (09:42→16:37)
[2018-02-24] MEDS: HALOPERIDOL 5 MG TABLET PO PRN (09:44)
[2018-02-24] MEDS: LORazepam 2 MG TABLET PO PRN (09:44)
[2018-02-24 09:48] LABS: APPEARANCE,URINE CLEAR (CLEAR); BILIRUBIN,URINE NEGATIVE (NEGATIVE); GLUCOSE, URINE (UA) NEGATIVE (NEGATIVE); KETONES,URINE NEGATIVE (NEGATIVE); LEUKOCYTE ESTERASE ,URINE NEGATIVE (NEGATIVE); NITRATE,URINE NEGATIVE (NEGATIVE); OCCULT BLOOD,URINE NEGATIVE (NEGATIVE); PROTEIN,URINE NEGATIVE (NEGATIVE)
[2018-02-24 16:11] VITALS: BP 100/60
[2018-02-24] MEDS: ZOLPIDEM TARTRATE 10 MG TABLET PO PRN (21:03)
[2018-02-25 00:30] VITALS: BP 108/60
[2018-02-25 08:06] VITALS: BP 107/68
[2018-02-25] MEDS: QUEtiapine FUMARATE 200 MG ER TABLET PO SCH ×2 (08:34→16:04)
[2018-02-25] MEDS: BusPIRone HCL 15 MG TABLET PO SCH ×4 (08:35→16:04)
[2018-02-25] MEDS: METHADONE HCL 10 MG TABLET PO SCH (08:43)
[2018-02-25] MEDS: LORazepam 2 MG TABLET PO PRN ×2 (08:44→17:15)
[2018-02-25] MEDS: NICOTINE 21 MG/24 HOUR PATCH TD SCH (08:46)
[2018-02-25] MEDS: HALOPERIDOL 5 MG TABLET PO PRN ×2 (13:13→17:15)
[2018-02-25 16:16] VITALS: BP 104/70
[2018-02-25 17:13] VITALS: BP 119/73
[2018-02-25] MEDS: ZOLPIDEM TARTRATE 10 MG TABLET PO PRN (20:36)
[2018-02-26 03:26] VITALS: BP 107/77
[2018-02-26 08:27] VITALS: BP 101/65
[2018-02-26] MEDS: BusPIRone HCL 15 MG TABLET PO SCH ×2 (08:28→13:00)
[2018-02-26 08:35] LABS: BASOPHILS % (AUTO) 0.7 % (0.0-2.0); EOSINOPHILS % (AUTO) 3.2 % (1.0-6.0); HEMATOCRIT 37.2 % (41-53); HEMOGLOBIN 13.2 g/dL (13.5-17.5); LYMPHOCYTES # (AUTO) 1.7 K/uL (1.0-4.8); LYMPHOCYTES % (AUTO) 40.4 % (22.0-44.0); MEAN CORPUSCULAR HEMOGLOBIN 31.6 pg (26.0-34.0); MEAN CORPUSCULAR HGB CONC 35.6 G/dL (31.0-37.0); MEAN CORPUSCULAR VOLUME 89 fL (80-100); MONOCYTES # (AUTO) 0.6 K/uL (0.1-1.0); MONOCYTES % (AUTO) 13.3 % (2.0-9.0); NEUTROPHILS # (AUTO) 1.8 K/uL (1.8-7.7); NEUTROPHILS % (AUTO) 42.4 % (40.0-70.0); PLATELET COUNT (AUTO) 311 K/uL (150-450); RED BLOOD CELL COUNT(AUTO) 4.18 MIL/uL (4.50-5.90); RED CELL DISTRIBUTION WIDTH 15.1 % (11.5-14.5)
[2018-02-26] MEDS: NICOTINE 21 MG/24 HOUR PATCH TD SCH (08:39)
[2018-02-26] MEDS: QUEtiapine FUMARATE 200 MG ER TABLET PO SCH (08:39)
[2018-02-26] MEDS: METHADONE HCL 10 MG TABLET PO SCH (08:39)
[2018-02-26] MEDS ORDERED: FOLIC ACID 1 MG TABLET PO SCH (09:00)
== END 2018-02-26 11:45 | disposition home or self-care (01) | DRG 750 ==
LOC: B2S 16:16
PROVIDERS: ADMIT Psychiatry & Neurology Child & Adolescent Psychiatry; ATTEND Psychiatry & Neurology Child & Adolescent Psychiatry
DX: F25.9 Schizoaffective disorder, unspecified (principal); F11.20 Opioid dependence, uncomplicated; R45.851 Suicidal ideations; F15.90 Other stimulant use, unspecified, uncomplicated; D64.9 Anemia, unspecified; D72.819 Decreased white blood cell count, unspecified; G47.00 Insomnia, unspecified; M19.90 Unspecified osteoarthritis, unspecified site; F19.10 Other psychoactive substance abuse, uncomplicated; R74.0 Nonspecific elevation of levels of transaminase and lactic acid dehydrogenase [LDH]; F41.9 Anxiety disorder, unspecified; Z79.899 Other long term (current) drug therapy; Z59.0 Homelessness; Z88.0 Allergy status to penicillin; Z71.51 Drug abuse counseling and surveillance of drug abuser
CPT/HCPCS: 80307; 83036; 84439; 84443; 87081

== ENCOUNTER 2018-04-07 21:05 | Inpatient (IN) | payer MEDICAID ==
[~2018-04-07] VITALS: Ht 185.4 cm; Wt 77.2 kg
[~2018-04-07 21:05] MED LIST changes: -FERR325T22 PO
[2018-04-07 21:42] VITALS: BP 122/81
[2018-04-07] MEDS: LORazepam 2 MG TABLET PO PRN (22:32)
[2018-04-08] VITALS (13 sets, daily range): BP systolic 107–131; BP diastolic 62–99
[2018-04-08] MEDS: LORazepam 2 MG TABLET PO PRN ×3 (05:34→18:55)
[2018-04-08 08:23] LABS: BASOPHILS % (AUTO) 0.7 % (0.0-2.0); EOSINOPHILS % (AUTO) 1.5 % (1.0-6.0); HEMOGLOBIN 14.3 g/dL (13.5-17.5); LYMPHOCYTES # (AUTO) 2.4 K/uL (1.0-4.8); LYMPHOCYTES % (AUTO) 34.1 % (22.0-44.0); MEAN CORPUSCULAR HEMOGLOBIN 31.9 pg (26.0-34.0); MEAN CORPUSCULAR VOLUME 91 fL (80-100); MONOCYTES # (AUTO) 0.8 K/uL (0.1-1.0); MONOCYTES % (AUTO) 11.4 % (2.0-9.0); NEUTROPHILS # (AUTO) 3.7 K/uL (1.8-7.7); NEUTROPHILS % (AUTO) 52.3 % (40.0-70.0); PLATELET COUNT (AUTO) 246 K/uL (150-450); RED BLOOD CELL COUNT(AUTO) 4.49 MIL/uL (4.50-5.90); RED CELL DISTRIBUTION WIDTH 14.2 % (11.5-14.5)
[2018-04-08 08:42] LABS: ALANINE AMINOTRANSFERASE 42 U/L (12-78); ALKALINE PHOSPHATASE 99 U/L (46-116); ANION GAP 5 mmol/L (8-16); ASPARTATE AMINOTRANSFERASE 83 U/L (15-37); CALCIUM, TOTAL 8.9 mg/dL (8.8-10.5); CARBON DIOXIDE 31 mmol/L (22-29); CHLORIDE 98 mmol/L (98-107); CHOL/HDL RATIO 2.4 (4.2-7.3); CHOLESTEROL 205 mg/dL (131-200); CREATININE 0.97 mg/dL (0.60-1.30); FREE T4 (FREE THYROXINE) 0.91 ng/dL (0.76-1.46); GLOMERULAR FILTR. RATE CALC > 60 mL/min (>60); GLUCOSE,RANDOM 86 mg/dL (70-110); HDL CHOLESTEROL 84 mg/dL (40-60); LDL CHOL (CALC.) 112 mg/dL (0-130); POTASSIUM 4.1 mmol/L (3.5-5.1); SODIUM SERUM 134 mmol/L (136-145); THYROID STIMULATING HORMONE 2.94 uIU/mL (0.36-3.74); TOTAL PROTEIN, SERUM 9.2 g/dL (6.4-8.2); TRIGLYCERIDES 47 mg/dL (15-150); UREA NITROGEN, BLOOD 31 mg/dL (7-18)
[2018-04-08 08:44] LABS: HEMOGLOBIN A1C 4.9 % (4.5-6.2)
[2018-04-08] MEDS: BusPIRone HCL 15 MG TABLET PO SCH ×2 (13:58→17:03)
[2018-04-08] MEDS ORDERED: NICOTINE 14 MG/24 HOUR PATCH TD PRN (15:45)
[2018-04-08] MEDS ORDERED: GuaiFENesin/D-METHORPHAN [SUGAR-FREE] 200-20MG/10 ML SYRUP UDCUP PO PRN (15:45)
[2018-04-08] MEDS ORDERED: IBUPROFEN 400 MG TABLET PO PRN (15:45)
[2018-04-08] MEDS ORDERED: MAG HYDROX/AL HYDROX/SIMETH ES 30 ML SUSPENSION UDCUP PO PRN (15:45)
[2018-04-08] MEDS ORDERED: LOPERAMIDE HCL 2 MG CAPSULE PO PRN (15:45)
[2018-04-08] MEDS ORDERED: ONDANSETRON HCL 4 MG TABLET PO PRN (15:45)
[2018-04-08] MEDS ORDERED: MAGNESIUM HYDROXIDE SUSPENSION 30 ML UDCUP PO PRN (15:45)
[2018-04-08] MEDS ORDERED: ACETAMINOPHEN 325 MG TABLET PO PRN (15:45)
[2018-04-08] MEDS ORDERED: PETROLATUM,WHITE 71 GM JELLY TP PRN (15:45)
[2018-04-08] MEDS ORDERED: DOCUSATE SODIUM 100 MG CAPSULE PO PRN (15:45)
[2018-04-08] MEDS ORDERED: ALBUTEROL SULFATE HFA 90 MCG/PUFF 8 GM INHALER IH PRN (15:45)
[2018-04-08] MEDS ORDERED: CloNIDine HCL 0.1 MG TABLET PO PRN (15:45)
[2018-04-08] MEDS: QUEtiapine FUMARATE 200 MG ER TABLET PO SCH (17:03)
[2018-04-09 05:00] VITALS: BP 116/72
[2018-04-09 06:44] VITALS: BP 116/72
[2018-04-09 08:23] VITALS: BP 110/70
[2018-04-09] MEDS: BusPIRone HCL 15 MG TABLET PO SCH ×3 (08:24→16:10)
[2018-04-09 08:25] VITALS: BP 110/70
[2018-04-09] MEDS: QUEtiapine FUMARATE 200 MG ER TABLET PO SCH ×2 (08:25→16:11)
[2018-04-09 08:36] LABS: APPEARANCE,URINE TURBID (CLEAR); BILIRUBIN,URINE NEGATIVE (NEGATIVE); GLUCOSE, URINE (UA) NEGATIVE (NEGATIVE); KETONES,URINE NEGATIVE (NEGATIVE); LEUKOCYTE ESTERASE ,URINE NEGATIVE (NEGATIVE); NITRATE,URINE NEGATIVE (NEGATIVE); OCCULT BLOOD,URINE NEGATIVE (NEGATIVE); PH,URINE 5.5 (5.0-8.0); PROTEIN,URINE NEGATIVE (NEGATIVE)
[2018-04-09 09:29] LABS: AMPHET/METH SCREEN,URINE POSITIVE (NEGATIVE); BARBITURATE SCREEN, URINE NEGATIVE (NEGATIVE); BENZODIAZEPINES SCREEN,URINE NEGATIVE (NEGATIVE); CANNABINOID SCREEN,URINE POSITIVE (NEGATIVE); COCAINE SCREEN,URINE NEGATIVE (NEGATIVE); METHADONE SCREEN, URINE POSITIVE (NEGATIVE); OPIATE SCREEN,URINE POSITIVE (NEGATIVE); PHENCYCLIDINE SCREEN,URINE NEGATIVE (NEGATIVE)
[2018-04-09] MEDS: LORazepam 2 MG TABLET PO PRN ×2 (11:28→19:51)
[2018-04-09 16:05] VITALS: BP 107/68
[2018-04-10 00:25] VITALS: BP 116/82
[2018-04-10] MEDS: ZOLPIDEM TARTRATE 10 MG TABLET PO PRN ×2 (00:28→21:43)
[2018-04-10] MEDS: LORazepam 2 MG TABLET PO PRN ×2 (01:36→17:09)
[2018-04-10 07:53] LABS: ANION GAP 4 mmol/L (8-16); CALCIUM, TOTAL 8.3 mg/dL (8.8-10.5); CARBON DIOXIDE 31 mmol/L (22-29); CHLORIDE 107 mmol/L (98-107); CREATININE 0.84 mg/dL (0.60-1.30); GLOMERULAR FILTR. RATE CALC > 60 mL/min (>60); GLUCOSE,RANDOM 78 mg/dL (70-110); POTASSIUM 4.5 mmol/L (3.5-5.1); SODIUM SERUM 142 mmol/L (136-145); UREA NITROGEN, BLOOD 16 mg/dL (7-18)
[2018-04-10] MEDS: QUEtiapine FUMARATE 200 MG ER TABLET PO SCH ×2 (08:50→20:15)
[2018-04-10] MEDS: BusPIRone HCL 15 MG TABLET PO SCH ×2 (08:51→12:41)
[2018-04-10 09:11] VITALS: BP 115/79
[2018-04-10] MEDS ORDERED: BusPIRone HCL 10 MG TABLET PO SCH (13:00)
[2018-04-10 16:22] VITALS: BP 115/74
[2018-04-10] MEDS: BusPIRone HCL 10 MG TABLET PO SCH (16:24)
[2018-04-10] MEDS ORDERED: MUPIROCIN CALCIUM 2% 15 GM CREAM TP SCH (17:00)
[2018-04-10] MEDS: MUPIROCIN CALCIUM 2% 22 GM OINTMENT NASAL SCH (21:04)
[2018-04-11 01:15] VITALS: BP 119/81
[2018-04-11 08:25] VITALS: BP 110/70
[2018-04-11] MEDS: BusPIRone HCL 10 MG TABLET PO SCH ×3 (08:53→16:10)
[2018-04-11] MEDS: MUPIROCIN CALCIUM 2% 22 GM OINTMENT NASAL SCH ×2 (08:54→16:10)
[2018-04-11] MEDS: METHADONE HCL 10 MG TABLET PO SCH (08:54)
[2018-04-11] MEDS: LORazepam 2 MG TABLET PO PRN ×2 (11:14→17:19)
[2018-04-11 16:11] VITALS: BP 112/67
[2018-04-11] MEDS: QUEtiapine FUMARATE 200 MG ER TABLET PO SCH (20:20)
[2018-04-11] MEDS: ZOLPIDEM TARTRATE 10 MG TABLET PO PRN (21:12)
[2018-04-12 00:28] VITALS: BP 122/82
[2018-04-12] MEDS: LORazepam 2 MG TABLET PO PRN ×3 (01:43→17:46)
[2018-04-12 08:27] VITALS: BP 112/69
[2018-04-12] MEDS: METHADONE HCL 10 MG TABLET PO SCH (08:29)
[2018-04-12] MEDS: BusPIRone HCL 10 MG TABLET PO SCH ×3 (08:29→16:41)
[2018-04-12] MEDS: MUPIROCIN CALCIUM 2% 22 GM OINTMENT NASAL SCH ×2 (08:31→16:41)
[2018-04-12 16:00] VITALS: BP 123/75
[2018-04-12] MEDS: HALOPERIDOL 5 MG TABLET PO PRN (17:46)
[2018-04-12] MEDS: QUEtiapine FUMARATE 200 MG ER TABLET PO SCH (20:10)
[2018-04-13 06:20] VITALS: BP 132/71
[2018-04-13 08:36] VITALS: BP 106/69
[2018-04-13] MEDS: BusPIRone HCL 10 MG TABLET PO SCH ×3 (08:49→16:01)
[2018-04-13] MEDS: MUPIROCIN CALCIUM 2% 22 GM OINTMENT NASAL SCH ×2 (08:50→16:01)
[2018-04-13] MEDS: METHADONE HCL 10 MG TABLET PO SCH (08:50)
[2018-04-13] MEDS: LORazepam 2 MG TABLET PO PRN (13:19)
[2018-04-13] MEDS: HALOPERIDOL 5 MG TABLET PO PRN (13:19)
[2018-04-13 16:00] VITALS: BP 117/75
[2018-04-13] MEDS: QUEtiapine FUMARATE 200 MG ER TABLET PO SCH (21:16)
[2018-04-14 03:15] VITALS: BP 107/69
[2018-04-14] MEDS: LORazepam 2 MG TABLET PO PRN ×2 (07:16→14:50)
[2018-04-14] MEDS: HALOPERIDOL 5 MG TABLET PO PRN ×2 (07:17→17:20)
[2018-04-14 08:30] VITALS: BP 110/82
[2018-04-14] MEDS: BusPIRone HCL 10 MG TABLET PO SCH ×3 (08:54→17:18)
[2018-04-14] MEDS: METHADONE HCL 10 MG TABLET PO SCH (08:54)
[2018-04-14] MEDS: MUPIROCIN CALCIUM 2% 22 GM OINTMENT NASAL SCH ×2 (08:58→17:19)
[2018-04-14 16:00] VITALS: BP 110/66
[2018-04-14] MEDS: QUEtiapine FUMARATE 200 MG ER TABLET PO SCH (20:13)
[2018-04-14] MEDS: ZOLPIDEM TARTRATE 10 MG TABLET PO PRN (20:41)
[2018-04-15 00:33] VITALS: BP 100/66
[2018-04-15 08:23] VITALS: BP 117/73
[2018-04-15] MEDS ORDERED: MULTIVITAMINS WITH MINERALS, THERAPEUTIC TABLET PO SCH (09:00)
[2018-04-15] MEDS ORDERED: THIAMINE HCL 100 MG TABLET PO SCH (09:00)
[2018-04-15] MEDS ORDERED: FOLIC ACID 0.4 MG TABLET PO SCH (09:00)
[2018-04-15] MEDS: METHADONE HCL 10 MG TABLET PO SCH (09:02)
[2018-04-15] MEDS: MUPIROCIN CALCIUM 2% 22 GM OINTMENT NASAL SCH (09:03)
[2018-04-15] MEDS: BusPIRone HCL 10 MG TABLET PO SCH (09:08)
[2018-04-15] MEDS ORDERED: BUSP10TA23 PO (09:26)
[2018-04-15] MEDS ORDERED: QUET200XR PO (09:26)
== END 2018-04-15 10:15 | disposition home or self-care (01) | DRG 753 ==
LOC: B2S 21:26
PROVIDERS: ADMIT Psychiatry & Neurology Child & Adolescent Psychiatry; ATTEND Psychiatry & Neurology Child & Adolescent Psychiatry
DX: F31.4 Bipolar disorder, current episode depressed, severe, without psychotic features (principal); E87.1 Hypo-osmolality and hyponatremia; R45.851 Suicidal ideations; B18.2 Chronic viral hepatitis C; D64.9 Anemia, unspecified; F11.20 Opioid dependence, uncomplicated; F12.20 Cannabis dependence, uncomplicated; R74.0 Nonspecific elevation of levels of transaminase and lactic acid dehydrogenase [LDH]; F15.20 Other stimulant dependence, uncomplicated; F41.9 Anxiety disorder, unspecified; G47.00 Insomnia, unspecified; K21.9 Gastro-esophageal reflux disease without esophagitis; M19.90 Unspecified osteoarthritis, unspecified site; Z28.21 Immunization not carried out because of patient refusal; Z88.0 Allergy status to penicillin; Z79.899 Other long term (current) drug therapy
CPT/HCPCS: 80074; 80307; 83036; 84439; 84443; 87081

== ENCOUNTER 2018-07-12 12:29 | Inpatient (IN) | payer MEDICAID ==
[~2018-07-12] VITALS: Ht 185.4 cm; Wt 94.8 kg
[~2018-07-12 12:29] MED LIST changes: +BUSP10TA23 PO; -BUSP15 PO; +QUET200T5 PO; -QUET200XR PO
[2018-07-12 12:50] VITALS: BP 134/85
[2018-07-12] MEDS ORDERED: METH10 PO (14:02)
[2018-07-12] MEDS ORDERED: PROMETHAZINE HCL 25 MG TABLET PO PRN (16:45)
[2018-07-12] MEDS ORDERED: GuaiFENesin/D-METHORPHAN [SUGAR-FREE] 200-20MG/10 ML SYRUP UDCUP PO PRN (16:45)
[2018-07-12] MEDS ORDERED: MAGNESIUM HYDROXIDE SUSPENSION 30 ML UDCUP PO PRN (16:45)
[2018-07-12] MEDS ORDERED: MAG HYDROX/AL HYDROX/SIMETH ES 30 ML SUSPENSION UDCUP PO PRN ×2 (16:45)
[2018-07-12] MEDS ORDERED: ACETAMINOPHEN 325 MG TABLET PO PRN (16:45)
[2018-07-12] MEDS ORDERED: PNEUMOCOCCAL VACCINE POLYVALENT 0.5 ML VIAL [PPSV23] IM ONE (16:45)
[2018-07-12] MEDS ORDERED: LOPERAMIDE HCL 2 MG CAPSULE PO PRN (16:45)
[2018-07-12] MEDS ORDERED: TUBERCULIN, PURIFIED PROTEIN DERIVATIVE 5 TU/0.1 ML SYRINGE ID ONE (16:45)
[2018-07-12] MEDS ORDERED: CYANOCOBALAMIN 1,000 MCG/ML VIAL IM ONE (16:45)
[2018-07-12] MEDS ORDERED: IBUPROFEN 600 MG TABLET PO PRN (16:45)
[2018-07-12] MEDS ORDERED: CloNIDine HCL 0.1 MG TABLET PO PRN (16:45)
[2018-07-12] MEDS ORDERED: QUEtiapine FUMARATE 100 MG TABLET PO PRN (16:45)
[2018-07-12] MEDS ORDERED: HydrOXYzine PAMOATE 50 MG CAPSULE PO PRN ×2 (16:45)
[2018-07-12 16:49] VITALS: BP 131/76
[2018-07-12] MEDS ORDERED: CloNIDine HCL 0.1 MG TABLET PO SCH (17:00)
[2018-07-12] MEDS: LORazepam 2 MG TABLET PO PRN (19:39)
[2018-07-12 19:43] VITALS: BP 114/74
[2018-07-12] MEDS: ACAMPROSATE CALCIUM 333 MG DR TABLET PO SCH (19:52)
[2018-07-12] MEDS: THIAMINE HCL 100 MG TABLET PO SCH (19:52)
[2018-07-12] MEDS ORDERED: QUEtiapine FUMARATE 200 MG TABLET PO SCH (21:00)
[2018-07-12] MEDS: ZOLPIDEM TARTRATE 10 MG TABLET PO PRN (21:07)
[2018-07-12 22:18] VITALS: BP 104/62
[2018-07-12 23:30] VITALS: BP 110/68
[2018-07-12 23:50] VITALS: BP 110/68
[2018-07-13] VITALS (7 sets, daily range): BP systolic 97–119; BP diastolic 68–80
[2018-07-13 08:46] LABS: EOSINOPHILS % (AUTO) 3.1 % (1.0-6.0); HEMATOCRIT 40.6 % (41-53); HEMOGLOBIN 13.8 g/dL (13.5-17.5); LYMPHOCYTES # (AUTO) 2.3 K/uL (1.0-4.8); LYMPHOCYTES % (AUTO) 50.3 % (22.0-44.0); MEAN CORPUSCULAR HEMOGLOBIN 31.3 pg (26.0-34.0); MEAN CORPUSCULAR HGB CONC 34.1 G/dL (31.0-37.0); MEAN CORPUSCULAR VOLUME 92 fL (80-100); MONOCYTES # (AUTO) 0.5 K/uL (0.1-1.0); MONOCYTES % (AUTO) 10.1 % (2.0-9.0); NEUTROPHILS # (AUTO) 1.6 K/uL (1.8-7.7); NEUTROPHILS % (AUTO) 35.5 % (40.0-70.0); PLATELET COUNT (AUTO) 268 K/uL (150-450); RED BLOOD CELL COUNT(AUTO) 4.43 MIL/uL (4.50-5.90); RED CELL DISTRIBUTION WIDTH 13.5 % (11.5-14.5)
[2018-07-13 09:00] LABS: HEMOGLOBIN A1C 4.8 % (4.5-6.2)
[2018-07-13] MEDS: THIAMINE HCL 100 MG TABLET PO SCH ×2 (09:12→16:37)
[2018-07-13] MEDS: ACAMPROSATE CALCIUM 333 MG DR TABLET PO SCH ×3 (09:12→16:37)
[2018-07-13] MEDS: MULTIVITAMINS WITH MINERALS, THERAPEUTIC TABLET PO SCH (09:12)
[2018-07-13] MEDS: METHADONE HCL 10 MG TABLET PO SCH (09:12)
[2018-07-13] MEDS: FOLIC ACID 1 MG TABLET PO SCH (09:12)
[2018-07-13 09:13] LABS: ALANINE AMINOTRANSFERASE 59 U/L (12-78); ALBUMIN 3.3 g/dL (3.4-5.0); ALKALINE PHOSPHATASE 70 U/L (46-116); ANION GAP 9 mmol/L (8-16); ASPARTATE AMINOTRANSFERASE 41 U/L (15-37); BILIRUBIN,TOTAL 0.4 mg/dL (0.1-1.0); CALCIUM, TOTAL 9.1 mg/dL (8.8-10.5); CARBON DIOXIDE 25 mmol/L (22-29); CHLORIDE 106 mmol/L (98-107); CHOL/HDL RATIO 4.4 (4.2-7.3); CHOLESTEROL 162 mg/dL (131-200); CREATININE 0.64 mg/dL (0.60-1.30); GLOMERULAR FILTR. RATE CALC > 60 mL/min (>60); GLUCOSE,RANDOM 79 mg/dL (70-110); HDL CHOLESTEROL 37 mg/dL (40-60); LDL CHOL (CALC.) 93 mg/dL (0-130); POTASSIUM 4.6 mmol/L (3.5-5.1); SODIUM SERUM 140 mmol/L (136-145); THYROID STIMULATING HORMONE 1.64 uIU/mL (0.36-3.74); TOTAL PROTEIN, SERUM 7.6 g/dL (6.4-8.2); TRIGLYCERIDES 160 mg/dL (15-150); UREA NITROGEN, BLOOD 13 mg/dL (7-18)
[2018-07-13] MEDS: LORazepam 2 MG TABLET PO PRN ×2 (12:47→22:56)
[2018-07-13] MEDS: BusPIRone HCL 10 MG TABLET PO SCH (16:37)
[2018-07-13] MEDS ORDERED: QUEtiapine FUMARATE 200 MG TABLET PO SCH (21:00)
[2018-07-13] MEDS: ZOLPIDEM TARTRATE 10 MG TABLET PO PRN (21:01)
[2018-07-14 00:29] VITALS: BP 120/81
[2018-07-14] MEDS: LORazepam 2 MG TABLET PO PRN ×2 (04:56→11:11)
[2018-07-14 08:56] VITALS: BP 128/65
[2018-07-14] MEDS: METHADONE HCL 10 MG TABLET PO SCH (09:10)
[2018-07-14] MEDS: ACAMPROSATE CALCIUM 333 MG DR TABLET PO SCH ×3 (09:12→16:11)
[2018-07-14] MEDS: THIAMINE HCL 100 MG TABLET PO SCH ×2 (09:13→16:11)
[2018-07-14] MEDS: FOLIC ACID 1 MG TABLET PO SCH (09:13)
[2018-07-14] MEDS: MULTIVITAMINS WITH MINERALS, THERAPEUTIC TABLET PO SCH (09:13)
[2018-07-14] MEDS: BusPIRone HCL 10 MG TABLET PO SCH ×3 (09:14→16:11)
[2018-07-14 11:03] VITALS: BP 128/65
[2018-07-14 16:02] VITALS: BP 111/78
[2018-07-14] MEDS: HALOPERIDOL 5 MG TABLET PO PRN (16:11)
[2018-07-14 17:36] VITALS: BP 111/78
[2018-07-14] MEDS ORDERED: QUEtiapine FUMARATE 300 MG TABLET PO SCH (21:00)
[2018-07-15 00:45] VITALS: BP 110/68
[2018-07-15] MEDS: METHADONE HCL 10 MG TABLET PO SCH (09:18)
[2018-07-15] MEDS: THIAMINE HCL 100 MG TABLET PO SCH ×2 (09:19→16:08)
[2018-07-15] MEDS: MULTIVITAMINS WITH MINERALS, THERAPEUTIC TABLET PO SCH (09:19)
[2018-07-15] MEDS: FOLIC ACID 1 MG TABLET PO SCH (09:19)
[2018-07-15 09:36] VITALS: BP 119/60
[2018-07-15] MEDS: BusPIRone HCL 10 MG TABLET PO SCH ×3 (10:58→16:08)
[2018-07-15] MEDS: ACAMPROSATE CALCIUM 333 MG DR TABLET PO SCH ×3 (10:58→16:08)
[2018-07-15] MEDS: LORazepam 2 MG TABLET PO PRN (16:28)
[2018-07-15] MEDS: HALOPERIDOL 5 MG TABLET PO PRN (16:28)
[2018-07-15 16:34] VITALS: BP 118/76
[2018-07-15] MEDS ORDERED: LOPERAMIDE HCL 2 MG CAPSULE PO PRN (16:45)
[2018-07-15] MEDS: QUEtiapine FUMARATE 200 MG TABLET PO SCH (20:55)
[2018-07-15] MEDS: ZOLPIDEM TARTRATE 10 MG TABLET PO PRN (20:55)
[2018-07-16] MEDS: HALOPERIDOL 5 MG TABLET PO PRN ×3 (00:30→17:21)
[2018-07-16] MEDS: LORazepam 2 MG TABLET PO PRN ×2 (00:30→13:01)
[2018-07-16 06:00] VITALS: BP 107/67
[2018-07-16] MEDS: THIAMINE HCL 100 MG TABLET PO SCH ×2 (08:13→16:21)
[2018-07-16] MEDS: FOLIC ACID 1 MG TABLET PO SCH (08:13)
[2018-07-16] MEDS: MULTIVITAMINS WITH MINERALS, THERAPEUTIC TABLET PO SCH (08:13)
[2018-07-16] MEDS: METHADONE HCL 10 MG TABLET PO SCH (08:15)
[2018-07-16 08:45] VITALS: BP 100/57
[2018-07-16 08:49] VITALS: BP 100/57
[2018-07-16] MEDS ORDERED: BusPIRone HCL 10 MG TABLET PO SCH (09:00)
[2018-07-16] MEDS: ACAMPROSATE CALCIUM 333 MG DR TABLET PO SCH ×3 (09:29→16:21)
[2018-07-16 16:18] VITALS: BP 112/68
[2018-07-16] MEDS: QUEtiapine FUMARATE 200 MG TABLET PO SCH (20:05)
[2018-07-17 00:10] VITALS: BP 108/71
[2018-07-17] MEDS: LORazepam 2 MG TABLET PO PRN ×3 (01:03→13:22)
[2018-07-17] MEDS: METHADONE HCL 10 MG TABLET PO SCH (08:04)
[2018-07-17] MEDS: FOLIC ACID 1 MG TABLET PO SCH (08:04)
[2018-07-17] MEDS: MULTIVITAMINS WITH MINERALS, THERAPEUTIC TABLET PO SCH (08:04)
[2018-07-17] MEDS: ACAMPROSATE CALCIUM 333 MG DR TABLET PO SCH ×3 (08:04→16:30)
[2018-07-17] MEDS: THIAMINE HCL 100 MG TABLET PO SCH ×2 (08:05→16:29)
[2018-07-17] MEDS: BusPIRone HCL 15 MG TABLET PO SCH ×2 (08:05→12:17)
[2018-07-17 08:20] VITALS: BP 106/61
[2018-07-17] MEDS: HALOPERIDOL 5 MG TABLET PO PRN ×2 (09:21→13:22)
[2018-07-17 16:08] VITALS: BP 111/75
[2018-07-17] MEDS: QUEtiapine FUMARATE 200 MG TABLET PO SCH (20:32)
[2018-07-18 01:02] VITALS: BP 105/63
[2018-07-18 08:22] VITALS: BP 103/61
[2018-07-18] MEDS: MULTIVITAMINS WITH MINERALS, THERAPEUTIC TABLET PO SCH (09:08)
[2018-07-18] MEDS: FOLIC ACID 1 MG TABLET PO SCH (09:08)
[2018-07-18] MEDS: ACAMPROSATE CALCIUM 333 MG DR TABLET PO SCH ×3 (09:08→16:29)
[2018-07-18] MEDS: BusPIRone HCL 15 MG TABLET PO SCH ×2 (09:08→12:09)
[2018-07-18] MEDS: METHADONE HCL 10 MG TABLET PO SCH (09:08)
[2018-07-18] MEDS: THIAMINE HCL 100 MG TABLET PO SCH ×2 (09:08→16:29)
[2018-07-18 16:25] VITALS: BP 101/88
[2018-07-18] MEDS: LORazepam 2 MG TABLET PO PRN (19:15)
[2018-07-18] MEDS: HALOPERIDOL 5 MG TABLET PO PRN (19:15)
[2018-07-18] MEDS: QUEtiapine FUMARATE 200 MG TABLET PO SCH (20:35)
[2018-07-19 00:48] VITALS: BP 111/60
[2018-07-19] MEDS: THIAMINE HCL 100 MG TABLET PO SCH ×2 (07:55→16:10)
[2018-07-19] MEDS: FOLIC ACID 1 MG TABLET PO SCH (07:55)
[2018-07-19] MEDS: ACAMPROSATE CALCIUM 333 MG DR TABLET PO SCH ×3 (07:55→16:10)
[2018-07-19] MEDS: BusPIRone HCL 15 MG TABLET PO SCH ×2 (07:55→12:50)
[2018-07-19] MEDS: MULTIVITAMINS WITH MINERALS, THERAPEUTIC TABLET PO SCH (07:56)
[2018-07-19] MEDS: METHADONE HCL 10 MG TABLET PO SCH (07:56)
[2018-07-19 08:17] VITALS: BP 123/75
[2018-07-19] MEDS: HALOPERIDOL 5 MG TABLET PO PRN ×2 (08:21→12:29)
[2018-07-19] MEDS: LORazepam 2 MG TABLET PO PRN ×2 (08:21→12:29)
[2018-07-19 16:00] VITALS: BP 119/75
[2018-07-19] MEDS: QUEtiapine FUMARATE 200 MG TABLET PO SCH (20:38)
[2018-07-20] MEDS: LORazepam 2 MG TABLET PO PRN ×2 (01:36→16:02)
[2018-07-20] MEDS: HALOPERIDOL 5 MG TABLET PO PRN ×2 (01:36→17:29)
[2018-07-20 06:21] VITALS: BP 118/76
[2018-07-20] MEDS: MULTIVITAMINS WITH MINERALS, THERAPEUTIC TABLET PO SCH (08:48)
[2018-07-20] MEDS: METHADONE HCL 10 MG TABLET PO SCH (08:48)
[2018-07-20] MEDS: THIAMINE HCL 100 MG TABLET PO SCH ×2 (08:48→16:50)
[2018-07-20] MEDS: FOLIC ACID 1 MG TABLET PO SCH (08:48)
[2018-07-20] MEDS: BusPIRone HCL 15 MG TABLET PO SCH ×2 (08:48→12:47)
[2018-07-20] MEDS: ACAMPROSATE CALCIUM 333 MG DR TABLET PO SCH ×3 (08:49→16:50)
[2018-07-20] MEDS: OMEGA-3/DHA/EPA/FISH OIL 1,000 MG CAPSULE PO SCH (08:51)
[2018-07-20 08:59] VITALS: BP 112/73
[2018-07-20 16:20] VITALS: BP 109/69
[2018-07-20] MEDS: QUEtiapine FUMARATE 200 MG TABLET PO SCH (20:43)
[2018-07-20] MEDS: ZOLPIDEM TARTRATE 10 MG TABLET PO PRN (22:22)
[2018-07-21 03:36] VITALS: BP 112/70
[2018-07-21 08:28] VITALS: BP 117/67
[2018-07-21] MEDS: OMEGA-3/DHA/EPA/FISH OIL 1,000 MG CAPSULE PO SCH (09:43)
[2018-07-21] MEDS: METHADONE HCL 10 MG TABLET PO SCH (09:43)
[2018-07-21] MEDS: FOLIC ACID 1 MG TABLET PO SCH (09:44)
[2018-07-21] MEDS: BusPIRone HCL 15 MG TABLET PO SCH ×2 (09:44→12:44)
[2018-07-21] MEDS: LORazepam 2 MG TABLET PO PRN ×3 (09:44→21:09)
[2018-07-21] MEDS: MULTIVITAMINS WITH MINERALS, THERAPEUTIC TABLET PO SCH (09:44)
[2018-07-21] MEDS: HALOPERIDOL 5 MG TABLET PO PRN ×3 (09:44→21:09)
[2018-07-21] MEDS: THIAMINE HCL 100 MG TABLET PO SCH ×2 (09:44→16:05)
[2018-07-21] MEDS: ACAMPROSATE CALCIUM 333 MG DR TABLET PO SCH ×3 (09:44→16:05)
[2018-07-21 16:29] VITALS: BP 130/90
[2018-07-21] MEDS: ZOLPIDEM TARTRATE 10 MG TABLET PO PRN (20:11)
[2018-07-21] MEDS: QUEtiapine FUMARATE 200 MG TABLET PO SCH (20:12)
[2018-07-22 01:11] VITALS: BP 121/68
[2018-07-22 08:21] VITALS: BP 109/62
[2018-07-22] MEDS: MULTIVITAMINS WITH MINERALS, THERAPEUTIC TABLET PO SCH (09:07)
[2018-07-22] MEDS: FOLIC ACID 1 MG TABLET PO SCH (09:07)
[2018-07-22] MEDS: ACAMPROSATE CALCIUM 333 MG DR TABLET PO SCH ×3 (09:07→16:23)
[2018-07-22] MEDS: THIAMINE HCL 100 MG TABLET PO SCH (09:07)
[2018-07-22] MEDS: METHADONE HCL 10 MG TABLET PO SCH (09:07)
[2018-07-22] MEDS: OMEGA-3/DHA/EPA/FISH OIL 1,000 MG CAPSULE PO SCH (09:07)
[2018-07-22] MEDS: BusPIRone HCL 15 MG TABLET PO SCH ×2 (09:07→12:49)
[2018-07-22] MEDS: LORazepam 2 MG TABLET PO PRN ×2 (16:23→22:24)
[2018-07-22] MEDS: HALOPERIDOL 5 MG TABLET PO PRN ×2 (16:23→22:24)
[2018-07-22 16:47] VITALS: BP 100/69
[2018-07-22] MEDS: QUEtiapine FUMARATE 200 MG TABLET PO SCH (20:15)
[2018-07-22] MEDS: ZOLPIDEM TARTRATE 10 MG TABLET PO PRN (20:15)
[2018-07-23 06:40] VITALS: BP 106/70
[2018-07-23] MEDS: MULTIVITAMINS WITH MINERALS, THERAPEUTIC TABLET PO SCH (08:13)
[2018-07-23] MEDS: ACAMPROSATE CALCIUM 333 MG DR TABLET PO SCH ×3 (08:14→16:25)
[2018-07-23] MEDS: OMEGA-3/DHA/EPA/FISH OIL 1,000 MG CAPSULE PO SCH (08:14)
[2018-07-23] MEDS: METHADONE HCL 10 MG TABLET PO SCH (08:14)
[2018-07-23] MEDS: BusPIRone HCL 15 MG TABLET PO SCH ×2 (08:14→12:47)
[2018-07-23 08:26] VITALS: BP 112/63
[2018-07-23] MEDS: LORazepam 2 MG TABLET PO PRN (12:47)
[2018-07-23] MEDS: HALOPERIDOL 5 MG TABLET PO PRN (12:47)
[2018-07-23 16:42] VITALS: BP 109/63
[2018-07-23] MEDS ORDERED: BUSP30TA2 PO (16:52)
[2018-07-23] MEDS ORDERED: QUET400T PO (16:52)
== END 2018-07-23 17:35 | disposition home or self-care (01) | DRG 750 ==
LOC: B3A 13:58 → B2S 16:15
PROVIDERS: ADMIT Psychiatry & Neurology Psychiatry; ATTEND Psychiatry & Neurology Psychiatry
DX: F25.1 Schizoaffective disorder, depressive type (principal); R45.851 Suicidal ideations; Z91.14 Patient's other noncompliance with medication regimen; G89.29 Other chronic pain; F25.0 Schizoaffective disorder, bipolar type; K21.9 Gastro-esophageal reflux disease without esophagitis; M19.90 Unspecified osteoarthritis, unspecified site; B19.20 Unspecified viral hepatitis C without hepatic coma; M54.9 Dorsalgia, unspecified; F11.90 Opioid use, unspecified, uncomplicated; F17.210 Nicotine dependence, cigarettes, uncomplicated; M51.26 Other intervertebral disc displacement, lumbar region; Z79.899 Other long term (current) drug therapy; Z86.14 Personal history of Methicillin resistant Staphylococcus aureus infection; Z91.19 Patient's noncompliance with other medical treatment and regimen; Z88.0 Allergy status to penicillin
CPT/HCPCS: 83036; 84439; 84443; 87081; J3420

== ENCOUNTER 2018-10-01 14:12 | Inpatient (IN) | payer MEDICAID ==
[~2018-10-01] VITALS: Ht 188 cm; Wt 101.9 kg
[~2018-10-01 14:12] MED LIST changes: -BUSP10TA23 PO; +BUSP30TA2 PO; -QUET200T5 PO; +QUET400T PO
[2018-10-01] MEDS ORDERED: METH10 PO (14:27)
[2018-10-01] MEDS ORDERED: QUEtiapine FUMARATE 100 MG TABLET PO PRN (15:00)
[2018-10-01 15:10] VITALS: BP 126/70
[2018-10-01 16:42] VITALS: BP 119/71
[2018-10-01] MEDS ORDERED: PNEUMOCOCCAL VACCINE POLYVALENT 0.5 ML VIAL [PPSV23] IM ONE (17:00)
[2018-10-01] MEDS: LORazepam 2 MG TABLET PO PRN (17:01)
[2018-10-01] MEDS ORDERED: QUEtiapine FUMARATE 200 MG TABLET PO SCH (21:00)
[2018-10-01] MEDS: ZOLPIDEM TARTRATE 10 MG TABLET PO PRN (21:37)
[2018-10-02 06:08] VITALS: BP 121/68
[2018-10-02 08:05] LABS: BASOPHILS % (AUTO) 0.7 % (0.0-2.0); EOSINOPHILS % (AUTO) 5.3 % (1.0-6.0); HEMATOCRIT 40.7 % (41-53); HEMOGLOBIN 13.8 g/dL (13.5-17.5); LYMPHOCYTES # (AUTO) 1.6 K/uL (1.0-4.8); LYMPHOCYTES % (AUTO) 35.1 % (22.0-44.0); MEAN CORPUSCULAR HGB CONC 33.8 G/dL (31.0-37.0); MEAN CORPUSCULAR VOLUME 92 fL (80-100); MONOCYTES # (AUTO) 0.4 K/uL (0.1-1.0); MONOCYTES % (AUTO) 9.3 % (2.0-9.0); NEUTROPHILS # (AUTO) 2.3 K/uL (1.8-7.7); NEUTROPHILS % (AUTO) 49.6 % (40.0-70.0); PLATELET COUNT (AUTO) 309 K/uL (150-450); RED BLOOD CELL COUNT(AUTO) 4.44 MIL/uL (4.50-5.90)
[2018-10-02 08:27] LABS: HEMOGLOBIN A1C 5.2 % (4.5-6.2)
[2018-10-02 08:30] LABS: ALANINE AMINOTRANSFERASE 46 U/L (12-78); ALBUMIN 2.8 g/dL (3.4-5.0); ALKALINE PHOSPHATASE 73 U/L (46-116); ANION GAP 8 mmol/L (8-16); ASPARTATE AMINOTRANSFERASE 32 U/L (15-37); BILIRUBIN,TOTAL 0.2 mg/dL (0.1-1.0); CALCIUM, TOTAL 8.9 mg/dL (8.8-10.5); CARBON DIOXIDE 27 mmol/L (22-29); CHLORIDE 104 mmol/L (98-107); CHOLESTEROL 159 mg/dL (131-200); CREATININE 0.75 mg/dL (0.60-1.30); FREE T4 (FREE THYROXINE) 0.75 ng/dL (0.76-1.46); GLOMERULAR FILTR. RATE CALC > 60 mL/min (>60); GLUCOSE,RANDOM 99 mg/dL (70-110); HDL CHOLESTEROL 32 mg/dL (40-60); LDL CHOL (CALC.) 96 mg/dL (0-130); POTASSIUM 4.2 mmol/L (3.5-5.1); SODIUM SERUM 139 mmol/L (136-145); TOTAL PROTEIN, SERUM 8.1 g/dL (6.4-8.2); TRIGLYCERIDES 157 mg/dL (15-150); UREA NITROGEN, BLOOD 15 mg/dL (7-18)
[2018-10-02 08:37] VITALS: BP 96/57
[2018-10-02] MEDS: METHADONE HCL 10 MG TABLET PO SCH (08:50)
[2018-10-02] MEDS: NICOTINE 21 MG/24 HOUR PATCH TD SCH ×2 (08:50→09:00)
[2018-10-02] MEDS: BusPIRone HCL 15 MG TABLET PO SCH ×2 (08:51→11:42)
[2018-10-02 08:52] LABS: APPEARANCE,URINE CLEAR (CLEAR); BILIRUBIN,URINE NEGATIVE (NEGATIVE); GLUCOSE, URINE (UA) NEGATIVE (NEGATIVE); KETONES,URINE NEGATIVE (NEGATIVE); LEUKOCYTE ESTERASE ,URINE NEGATIVE (NEGATIVE); NITRATE,URINE NEGATIVE (NEGATIVE); OCCULT BLOOD,URINE NEGATIVE (NEGATIVE); PH,URINE 5.5 (5.0-8.0); PROTEIN,URINE NEGATIVE (NEGATIVE); UROBILINOGEN,URINE 0.2 mg/dL (<=1.0)
[2018-10-02 09:00] LABS: AMPHET/METH SCREEN,URINE NEGATIVE (NEGATIVE); BARBITURATE SCREEN, URINE NEGATIVE (NEGATIVE); BENZODIAZEPINES SCREEN,URINE NEGATIVE (NEGATIVE); CANNABINOID SCREEN,URINE NEGATIVE (NEGATIVE); COCAINE SCREEN,URINE NEGATIVE (NEGATIVE); METHADONE SCREEN, URINE POSITIVE (NEGATIVE); OPIATE SCREEN,URINE POSITIVE (NEGATIVE)
[2018-10-02 09:03] LABS: PHENCYCLIDINE SCREEN,URINE NEGATIVE (NEGATIVE)
[2018-10-02] MEDS: LORazepam 2 MG TABLET PO PRN ×3 (09:27→23:03)
[2018-10-02] MEDS: HALOPERIDOL 5 MG TABLET PO PRN ×2 (12:57→23:03)
[2018-10-02 16:13] VITALS: BP 120/71
[2018-10-02] MEDS: QUEtiapine FUMARATE 200 MG ER TABLET PO SCH (20:08)
[2018-10-03 00:30] VITALS: BP 110/68
[2018-10-03] MEDS: LORazepam 2 MG TABLET PO PRN ×3 (03:42→20:31)
[2018-10-03] MEDS: HALOPERIDOL 5 MG TABLET PO PRN ×2 (03:42→09:55)
[2018-10-03 08:35] VITALS: BP 105/48
[2018-10-03] MEDS: NICOTINE 21 MG/24 HOUR PATCH TD SCH (09:00)
[2018-10-03 09:04] VITALS: BP 118/80
[2018-10-03] MEDS: METHADONE HCL 10 MG TABLET PO SCH (09:05)
[2018-10-03] MEDS: BusPIRone HCL 15 MG TABLET PO SCH ×2 (09:05→11:21)
[2018-10-03 16:05] VITALS: BP 116/64
[2018-10-03] MEDS: QUEtiapine FUMARATE 200 MG ER TABLET PO SCH (20:31)
[2018-10-03] MEDS: ZOLPIDEM TARTRATE 10 MG TABLET PO PRN (23:32)
[2018-10-04 00:02] VITALS: BP 130/81
[2018-10-04] MEDS: LORazepam 2 MG TABLET PO PRN ×3 (04:18→17:31)
[2018-10-04] MEDS: HALOPERIDOL 5 MG TABLET PO PRN ×3 (04:18→17:31)
[2018-10-04] MEDS: BusPIRone HCL 15 MG TABLET PO SCH ×2 (08:29→11:42)
[2018-10-04] MEDS: NICOTINE 21 MG/24 HOUR PATCH TD SCH (08:29)
[2018-10-04] MEDS: METHADONE HCL 10 MG TABLET PO SCH (08:29)
[2018-10-04 08:36] VITALS: BP 105/69
[2018-10-04 08:50] VITALS: BP 121/81
[2018-10-04] MEDS: FLUoxetine HCL 20 MG CAPSULE PO SCH (10:56)
[2018-10-04 16:16] VITALS: BP 122/75
[2018-10-04] MEDS: QUEtiapine FUMARATE 200 MG ER TABLET PO SCH (20:10)
[2018-10-04] MEDS: ZOLPIDEM TARTRATE 10 MG TABLET PO PRN (21:04)
[2018-10-05] MEDS: LORazepam 2 MG TABLET PO PRN (02:26)
[2018-10-05 02:28] VITALS: BP 131/60
[2018-10-05 08:11] VITALS: BP 105/86
[2018-10-05] MEDS: BusPIRone HCL 15 MG TABLET PO SCH ×2 (08:35→12:47)
[2018-10-05] MEDS: FLUoxetine HCL 20 MG CAPSULE PO SCH (08:35)
[2018-10-05] MEDS: METHADONE HCL 10 MG TABLET PO SCH (08:36)
[2018-10-05] MEDS: NICOTINE 21 MG/24 HOUR PATCH TD SCH (08:49)
[2018-10-05 16:10] VITALS: BP 109/75
[2018-10-05] MEDS: ZOLPIDEM TARTRATE 10 MG TABLET PO PRN (21:35)
[2018-10-05] MEDS: QUEtiapine FUMARATE 200 MG ER TABLET PO SCH (21:35)
[2018-10-06 02:23] VITALS: BP 112/76
[2018-10-06] MEDS: FLUoxetine HCL 20 MG CAPSULE PO SCH (08:05)
[2018-10-06] MEDS: METHADONE HCL 10 MG TABLET PO SCH (08:06)
[2018-10-06] MEDS: BusPIRone HCL 15 MG TABLET PO SCH ×2 (08:06→12:34)
[2018-10-06] MEDS: NICOTINE 21 MG/24 HOUR PATCH TD SCH (08:14)
[2018-10-06 08:30] VITALS: BP 110/73
[2018-10-06] MEDS: LORazepam 2 MG TABLET PO PRN ×2 (10:28→20:35)
[2018-10-06] MEDS: HALOPERIDOL 5 MG TABLET PO PRN ×2 (10:28→20:35)
[2018-10-06 16:38] VITALS: BP 115/71
[2018-10-06] MEDS: QUEtiapine FUMARATE 200 MG ER TABLET PO SCH (20:33)
[2018-10-06] MEDS: ZOLPIDEM TARTRATE 10 MG TABLET PO PRN (22:13)
[2018-10-07 02:30] VITALS: BP 119/61
[2018-10-07] MEDS ORDERED: QUET300T5 PO (08:20)
[2018-10-07] MEDS ORDERED: FLUO-191 PO (08:22)
[2018-10-07] MEDS ORDERED: QUET200T5 PO (08:22)
[2018-10-07] MEDS: METHADONE HCL 10 MG TABLET PO SCH (08:55)
[2018-10-07] MEDS: FLUoxetine HCL 20 MG CAPSULE PO SCH (08:55)
[2018-10-07] MEDS: BusPIRone HCL 15 MG TABLET PO SCH ×2 (08:55→12:14)
[2018-10-07] MEDS: NICOTINE 21 MG/24 HOUR PATCH TD SCH (09:00)
[2018-10-07 09:21] VITALS: BP 107/60
== END 2018-10-07 13:00 | disposition home or self-care (01) | DRG 750 ==
LOC: B2X 16:07 → B2S 10-04 16:47
PROVIDERS: ADMIT Psychiatry & Neurology Psychiatry; ATTEND Psychiatry & Neurology Psychiatry
DX: F25.0 Schizoaffective disorder, bipolar type (principal); R45.851 Suicidal ideations; F11.20 Opioid dependence, uncomplicated; B19.20 Unspecified viral hepatitis C without hepatic coma; F41.9 Anxiety disorder, unspecified; F15.90 Other stimulant use, unspecified, uncomplicated; K21.9 Gastro-esophageal reflux disease without esophagitis; Z91.5 Personal history of self-harm; Z88.0 Allergy status to penicillin
CPT/HCPCS: 80307; 83036; 84436; 84439; 87081

== ENCOUNTER 2018-11-15 11:36 | Inpatient (IN) | payer MEDICAID ==
[2018-11-15] VITALS (7 sets, daily range): BP systolic 100–121; BP diastolic 60–74
[~2018-11-15 11:36] MED LIST changes: +FLUO-191 PO; +METH10 PO; +QUET200T5 PO; -QUET400T PO
[2018-11-15] MEDS ORDERED: GuaiFENesin/D-METHORPHAN [SUGAR-FREE] 200-20MG/10 ML SYRUP UDCUP PO PRN ×2 (13:45→16:45)
[2018-11-15] MEDS ORDERED: LOPERAMIDE HCL 2 MG CAPSULE PO PRN (13:45)
[2018-11-15] MEDS ORDERED: HydrOXYzine PAMOATE 50 MG CAPSULE PO PRN ×2 (13:45→16:45)
[2018-11-15] MEDS ORDERED: PNEUMOCOCCAL VACCINE POLYVALENT 0.5 ML VIAL [PPSV23] IM ONE (14:45)
[2018-11-15] MEDS ORDERED: QUEtiapine FUMARATE 100 MG TABLET PO PRN (16:45)
[2018-11-15] MEDS ORDERED: CYANOCOBALAMIN 1,000 MCG/ML VIAL IM ONE (16:45)
[2018-11-15] MEDS: THIAMINE HCL 100 MG TABLET PO SCH (16:49)
[2018-11-15] MEDS: LORazepam 2 MG TABLET PO PRN (16:49)
[2018-11-15] MEDS: HALOPERIDOL 5 MG TABLET PO PRN (16:49)
[2018-11-15] MEDS: BusPIRone HCL 15 MG TABLET PO SCH (16:50)
[2018-11-15] MEDS ORDERED: THIAMINE HCL 100 MG TABLET PO SCH (17:00)
[2018-11-15] MEDS ORDERED: IBUPROFEN 600 MG TABLET PO PRN (20:00)
[2018-11-15] MEDS ORDERED: ACETAMINOPHEN 325 MG TABLET PO PRN (20:00)
[2018-11-15] MEDS: QUEtiapine FUMARATE 200 MG TABLET PO SCH (20:52)
[2018-11-15] MEDS: MIRTAZAPINE 15 MG TABLET PO SCH (20:52)
[2018-11-15] MEDS: ZOLPIDEM TARTRATE 10 MG TABLET PO PRN (20:53)
[2018-11-16] VITALS (9 sets, daily range): BP systolic 98–109; BP diastolic 60–70
[2018-11-16 08:31] LABS: HEMOGLOBIN A1C 5.4 % (4.5-6.2)
[2018-11-16 08:40] LABS: ALANINE AMINOTRANSFERASE 75 U/L (12-78); ALBUMIN 2.8 g/dL (3.4-5.0); ALKALINE PHOSPHATASE 80 U/L (46-116); ANION GAP 8 mmol/L (8-16); ASPARTATE AMINOTRANSFERASE 41 U/L (15-37); BILIRUBIN,TOTAL 0.4 mg/dL (0.1-1.0); CALCIUM, TOTAL 9.1 mg/dL (8.8-10.5); CARBON DIOXIDE 27 mmol/L (22-29); CHLORIDE 102 mmol/L (98-107); CHOL/HDL RATIO 4.9 (4.2-7.3); CHOLESTEROL 178 mg/dL (131-200); CREATININE 0.89 mg/dL (0.60-1.30); FREE T4 (FREE THYROXINE) 0.83 ng/dL (0.76-1.46); GLOMERULAR FILTR. RATE CALC > 60 mL/min (>60); GLUCOSE,RANDOM 76 mg/dL (70-110); HDL CHOLESTEROL 36 mg/dL (40-60); LDL CHOL (CALC.) 113 mg/dL (0-130); POTASSIUM 4.3 mmol/L (3.5-5.1); SODIUM SERUM 137 mmol/L (136-145); THYROID STIMULATING HORMONE 3.03 uIU/mL (0.36-3.74); TOTAL PROTEIN, SERUM 8.3 g/dL (6.4-8.2); TRIGLYCERIDES 144 mg/dL (15-150); UREA NITROGEN, BLOOD 19 mg/dL (7-18)
[2018-11-16] MEDS: NICOTINE 21 MG/24 HOUR PATCH TD SCH (09:00)
[2018-11-16] MEDS ORDERED: MULTIVITAMINS WITH MINERALS, THERAPEUTIC TABLET PO SCH (09:00)
[2018-11-16] MEDS ORDERED: FOLIC ACID 1 MG TABLET PO SCH (09:00)
[2018-11-16] MEDS: THIAMINE HCL 100 MG TABLET PO SCH ×2 (09:27→17:13)
[2018-11-16] MEDS: HALOPERIDOL 5 MG TABLET PO PRN ×2 (09:32→17:13)
[2018-11-16] MEDS: FLUoxetine HCL 20 MG CAPSULE PO SCH (09:33)
[2018-11-16] MEDS: MULTIVITAMINS WITH MINERALS, THERAPEUTIC TABLET PO SCH (09:33)
[2018-11-16] MEDS: LORazepam 2 MG TABLET PO PRN ×2 (09:33→17:13)
[2018-11-16] MEDS: FOLIC ACID 1 MG TABLET PO SCH (09:33)
[2018-11-16] MEDS: BusPIRone HCL 15 MG TABLET PO SCH ×2 (09:34→17:13)
[2018-11-16] MEDS: METHADONE HCL 10 MG TABLET PO SCH (13:27)
[2018-11-16] MEDS: QUEtiapine FUMARATE 200 MG TABLET PO SCH (21:53)
[2018-11-16] MEDS: ZOLPIDEM TARTRATE 10 MG TABLET PO PRN (21:53)
[2018-11-16] MEDS: MIRTAZAPINE 15 MG TABLET PO SCH (21:53)
[2018-11-17 03:46] VITALS: BP 110/68
[2018-11-17 08:30] VITALS: BP 109/74
[2018-11-17 08:31] VITALS: BP 109/74
[2018-11-17] MEDS: MULTIVITAMINS WITH MINERALS, THERAPEUTIC TABLET PO SCH (08:31)
[2018-11-17] MEDS: THIAMINE HCL 100 MG TABLET PO SCH ×2 (08:31→16:30)
[2018-11-17] MEDS: FLUoxetine HCL 20 MG CAPSULE PO SCH (08:31)
[2018-11-17] MEDS: BusPIRone HCL 15 MG TABLET PO SCH ×2 (08:31→16:30)
[2018-11-17] MEDS: FOLIC ACID 1 MG TABLET PO SCH (08:31)
[2018-11-17] MEDS: METHADONE HCL 10 MG TABLET PO SCH (08:32)
[2018-11-17] MEDS: NICOTINE 21 MG/24 HOUR PATCH TD SCH (08:35)
[2018-11-17 08:42] LABS: AMPHET/METH SCREEN,URINE NEGATIVE (NEGATIVE); BARBITURATE SCREEN, URINE NEGATIVE (NEGATIVE); BENZODIAZEPINES SCREEN,URINE NEGATIVE (NEGATIVE); CANNABINOID SCREEN,URINE NEGATIVE (NEGATIVE); COCAINE SCREEN,URINE NEGATIVE (NEGATIVE); METHADONE SCREEN, URINE POSITIVE (NEGATIVE); OPIATE SCREEN,URINE POSITIVE (NEGATIVE)
[2018-11-17 08:43] LABS: PHENCYCLIDINE SCREEN,URINE NEGATIVE (NEGATIVE)
[2018-11-17] MEDS: LORazepam 2 MG TABLET PO PRN ×2 (10:54→16:30)
[2018-11-17] MEDS: HALOPERIDOL 5 MG TABLET PO PRN ×2 (14:31→20:52)
[2018-11-17 16:00] VITALS: BP 110/62
[2018-11-17 16:56] VITALS: BP 110/61
[2018-11-17] MEDS: MIRTAZAPINE 15 MG TABLET PO SCH (20:51)
[2018-11-17] MEDS ORDERED: QUEtiapine FUMARATE 300 MG TABLET PO SCH (21:00)
[2018-11-17] MEDS: ZOLPIDEM TARTRATE 10 MG TABLET PO PRN (21:18)
[2018-11-18 05:18] VITALS: BP 117/76
[2018-11-18] MEDS: LORazepam 2 MG TABLET PO PRN ×2 (07:18→15:47)
[2018-11-18] MEDS: HALOPERIDOL 5 MG TABLET PO PRN ×2 (07:18→15:47)
[2018-11-18 08:36] VITALS: BP 113/78
[2018-11-18] MEDS: BusPIRone HCL 15 MG TABLET PO SCH ×2 (09:40→16:55)
[2018-11-18] MEDS: FLUoxetine HCL 20 MG CAPSULE PO SCH (09:40)
[2018-11-18] MEDS: METHADONE HCL 10 MG TABLET PO SCH (09:41)
[2018-11-18] MEDS: THIAMINE HCL 100 MG TABLET PO SCH ×2 (09:43→16:55)
[2018-11-18] MEDS: FOLIC ACID 1 MG TABLET PO SCH (09:43)
[2018-11-18] MEDS: MULTIVITAMINS WITH MINERALS, THERAPEUTIC TABLET PO SCH (09:43)
[2018-11-18] MEDS: NICOTINE 21 MG/24 HOUR PATCH TD SCH (09:43)
[2018-11-18] MEDS ORDERED: QUET300T18 PO (14:03)
[2018-11-18] MEDS ORDERED: MIRT15 PO ×2 (14:03→23:14)
[2018-11-18] MEDS ORDERED: BUSP15 PO (14:03)
[2018-11-18] MEDS ORDERED: FLUO-191 PO (16:23)
[2018-11-18 16:31] VITALS: BP 110/70
[2018-11-18] MEDS: MIRTAZAPINE 15 MG TABLET PO SCH (20:56)
[2018-11-18] MEDS: ZOLPIDEM TARTRATE 10 MG TABLET PO PRN (20:56)
[2018-11-18] MEDS ORDERED: QUEtiapine FUMARATE 200 MG TABLET PO SCH (21:00)
[2018-11-19 00:51] VITALS: BP 103/64
[2018-11-19] MEDS: BusPIRone HCL 15 MG TABLET PO SCH (08:42)
[2018-11-19] MEDS: METHADONE HCL 10 MG TABLET PO SCH (08:42)
[2018-11-19] MEDS: FOLIC ACID 1 MG TABLET PO SCH (08:43)
[2018-11-19] MEDS: MULTIVITAMINS WITH MINERALS, THERAPEUTIC TABLET PO SCH (08:44)
[2018-11-19] MEDS ORDERED: FLUoxetine HCL 20 MG CAPSULE PO SCH (09:00)
[2018-11-19 09:10] VITALS: BP 117/69
[2018-11-19] MEDS: NICOTINE 21 MG/24 HOUR PATCH TD SCH (09:29)
[2018-11-19] MEDS: THIAMINE HCL 100 MG TABLET PO SCH (09:29)
[2018-11-19] MEDS ORDERED: ACAM333T7 PO (13:57)
== END 2018-11-19 11:35 | disposition home or self-care (01) | DRG 750 ==
LOC: B2S 13:32
PROVIDERS: ADMIT Psychiatry & Neurology Psychiatry; ATTEND Psychiatry & Neurology Psychiatry
DX: F25.0 Schizoaffective disorder, bipolar type (principal); R45.851 Suicidal ideations; Z59.0 Homelessness; B19.20 Unspecified viral hepatitis C without hepatic coma; D64.9 Anemia, unspecified; F11.10 Opioid abuse, uncomplicated; F17.210 Nicotine dependence, cigarettes, uncomplicated; K21.9 Gastro-esophageal reflux disease without esophagitis; M19.90 Unspecified osteoarthritis, unspecified site; G89.29 Other chronic pain; M54.9 Dorsalgia, unspecified; Z65.3 Problems related to other legal circumstances; Z79.899 Other long term (current) drug therapy; Z91.14 Patient's other noncompliance with medication regimen
CPT/HCPCS: 80307; 83036; 84439; 84443; J3420

== ENCOUNTER 2018-12-21 17:07 | Inpatient (IN) | payer MEDICAID ==
[~2018-12-21] VITALS: Ht 185.4 cm; Wt 101.6 kg
[~2018-12-21 17:07] MED LIST changes: +ACAM333T7 PO; +BUSP15 PO; -METH10 PO; +MIRT15 PO; +QUET300T18 PO
[2018-12-21] MEDS ORDERED: ACETAMINOPHEN 325 MG TABLET PO PRN (17:30)
[2018-12-21] MEDS ORDERED: CloNIDine HCL 0.1 MG TABLET PO PRN (17:30)
[2018-12-21] MEDS ORDERED: MAG HYDROX/AL HYDROX/SIMETH ES 30 ML SUSPENSION UDCUP PO PRN ×2 (17:30)
[2018-12-21] MEDS ORDERED: CYANOCOBALAMIN 1,000 MCG/ML VIAL IM ONE (17:30)
[2018-12-21] MEDS ORDERED: GuaiFENesin/D-METHORPHAN [SUGAR-FREE] 200-20MG/10 ML SYRUP UDCUP PO PRN (17:30)
[2018-12-21] MEDS ORDERED: LOPERAMIDE HCL 2 MG CAPSULE PO PRN (17:30)
[2018-12-21] MEDS ORDERED: PROMETHAZINE HCL 25 MG TABLET PO PRN (17:30)
[2018-12-21] MEDS ORDERED: MAGNESIUM HYDROXIDE SUSPENSION 30 ML UDCUP PO PRN (17:30)
[2018-12-21] MEDS ORDERED: HydrOXYzine PAMOATE 50 MG CAPSULE PO PRN ×2 (17:30)
[2018-12-21] MEDS ORDERED: IBUPROFEN 600 MG TABLET PO PRN (17:30)
[2018-12-21 18:02] VITALS: BP 142/95
[2018-12-21 19:30] VITALS: BP 147/95
[2018-12-21 19:54] VITALS: BP 147/95
[2018-12-21] MEDS: THIAMINE HCL 100 MG TABLET PO SCH (19:58)
[2018-12-21] MEDS: LORazepam 2 MG TABLET PO PRN (19:58)
[2018-12-21] MEDS: ACAMPROSATE CALCIUM 333 MG DR TABLET PO SCH (19:58)
[2018-12-21] MEDS: ZOLPIDEM TARTRATE 10 MG TABLET PO PRN (20:00)
[2018-12-21 20:30] VITALS: BP 123/82
[2018-12-21] MEDS ORDERED: MIRTAZAPINE 15 MG TABLET PO SCH (21:00)
[2018-12-21] MEDS ORDERED: QUEtiapine FUMARATE 200 MG TABLET PO SCH (21:00)
[2018-12-21 21:37] VITALS: BP 120/73
[2018-12-21] MEDS: CloNIDine HCL 0.1 MG TABLET PO SCH (21:38)
[2018-12-21 22:30] VITALS: BP 106/60
[2018-12-22] VITALS (8 sets, daily range): BP systolic 93–130; BP diastolic 60–86
[2018-12-22] MEDS: CloNIDine HCL 0.1 MG TABLET PO SCH (06:00)
[2018-12-22] MEDS: LORazepam 2 MG TABLET PO PRN ×4 (06:53→19:54)
[2018-12-22] MEDS: MULTIVITAMINS WITH MINERALS, THERAPEUTIC TABLET PO SCH ×2 (07:59→09:00)
[2018-12-22] MEDS: FOLIC ACID 1 MG TABLET PO SCH ×2 (07:59→09:00)
[2018-12-22] MEDS: THIAMINE HCL 100 MG TABLET PO SCH ×3 (07:59→16:43)
[2018-12-22] MEDS: ACAMPROSATE CALCIUM 333 MG DR TABLET PO SCH ×4 (07:59→16:43)
[2018-12-22 08:24] LABS: BASOPHILS % (AUTO) 0.8 % (0.0-2.0); EOSINOPHILS % (AUTO) 3.4 % (1.0-6.0); HEMATOCRIT 40.2 % (41-53); HEMOGLOBIN 13.4 g/dL (13.5-17.5); LYMPHOCYTES # (AUTO) 1.9 K/uL (1.0-4.8); LYMPHOCYTES % (AUTO) 39.2 % (22.0-44.0); MEAN CORPUSCULAR HEMOGLOBIN 31.4 pg (26.0-34.0); MEAN CORPUSCULAR HGB CONC 33.4 G/dL (31.0-37.0); MEAN CORPUSCULAR VOLUME 94 fL (80-100); MONOCYTES # (AUTO) 0.5 K/uL (0.1-1.0); MONOCYTES % (AUTO) 10.6 % (2.0-9.0); NEUTROPHILS # (AUTO) 2.3 K/uL (1.8-7.7); PLATELET COUNT (AUTO) 259 K/uL (150-450); RED BLOOD CELL COUNT(AUTO) 4.28 MIL/uL (4.50-5.90); RED CELL DISTRIBUTION WIDTH 13.7 % (11.5-14.5)
[2018-12-22] MEDS: QUEtiapine FUMARATE 100 MG TABLET PO PRN ×2 (08:36→16:44)
[2018-12-22 09:03] LABS: HEMOGLOBIN A1C 5.2 % (4.5-6.2)
[2018-12-22 09:15] LABS: ALANINE AMINOTRANSFERASE 68 U/L (12-78); ALBUMIN 3.2 g/dL (3.4-5.0); ALKALINE PHOSPHATASE 87 U/L (46-116); ANION GAP 7 mmol/L (8-16); ASPARTATE AMINOTRANSFERASE 44 U/L (15-37); BILIRUBIN,TOTAL 0.4 mg/dL (0.1-1.0); CALCIUM, TOTAL 9.3 mg/dL (8.8-10.5); CARBON DIOXIDE 26 mmol/L (22-29); CHLORIDE 103 mmol/L (98-107); CHOL/HDL RATIO 4.8 (4.2-7.3); CHOLESTEROL 188 mg/dL (131-200); CREATININE 0.85 mg/dL (0.60-1.30); FREE T4 (FREE THYROXINE) 1.02 ng/dL (0.76-1.46); GLOMERULAR FILTR. RATE CALC > 60 mL/min (>60); GLUCOSE,RANDOM 98 mg/dL (70-110); HDL CHOLESTEROL 39 mg/dL (40-60); LDL CHOL (CALC.) 118 mg/dL (0-130); SODIUM SERUM 136 mmol/L (136-145); THYROID STIMULATING HORMONE 7.13 uIU/mL (0.36-3.74); TOTAL PROTEIN, SERUM 8.6 g/dL (6.4-8.2); TRIGLYCERIDES 154 mg/dL (15-150)
[2018-12-22 09:26] LABS: UREA NITROGEN, BLOOD 18 mg/dL (7-18)
[2018-12-22] MEDS: METHADONE HCL 10 MG/5 ML SOLUTION ORAL.SYG PO SCH (13:01)
[2018-12-22] MEDS ORDERED: BusPIRone HCL 15 MG TABLET PO SCH (17:00)
[2018-12-22] MEDS: HALOPERIDOL 5 MG TABLET PO PRN (18:00)
[2018-12-22] MEDS: BusPIRone HCL 15 MG TABLET PO SCH (18:00)
[2018-12-22] MEDS: ZOLPIDEM TARTRATE 10 MG TABLET PO PRN (20:13)
[2018-12-22] MEDS: QUEtiapine FUMARATE 200 MG TABLET PO SCH (20:13)
[2018-12-23 06:19] VITALS: BP 109/69
[2018-12-23 07:12] VITALS: BP 109/69
[2018-12-23] MEDS: LEVOTHYROXINE SODIUM 25 MCG TABLET PO SCH (07:12)
[2018-12-23] MEDS: METHADONE HCL 10 MG/5 ML SOLUTION ORAL.SYG PO SCH (09:06)
[2018-12-23] MEDS: FOLIC ACID 1 MG TABLET PO SCH (09:07)
[2018-12-23] MEDS: BusPIRone HCL 15 MG TABLET PO SCH ×2 (09:07→16:52)
[2018-12-23] MEDS: THIAMINE HCL 100 MG TABLET PO SCH ×2 (09:07→16:52)
[2018-12-23] MEDS: ACAMPROSATE CALCIUM 333 MG DR TABLET PO SCH ×3 (09:08→16:52)
[2018-12-23] MEDS: MULTIVITAMINS WITH MINERALS, THERAPEUTIC TABLET PO SCH (09:08)
[2018-12-23] MEDS: HALOPERIDOL 5 MG TABLET PO PRN ×2 (09:08→16:52)
[2018-12-23 10:30] VITALS: BP 111/71
[2018-12-23] MEDS: LORazepam 2 MG TABLET PO PRN ×2 (10:31→16:52)
[2018-12-23 16:20] VITALS: BP 112/74
[2018-12-23] MEDS ORDERED: QUET200T29 PO (16:40)
[2018-12-23] MEDS ORDERED: ACAM333T7 PO (16:40)
[2018-12-23] MEDS ORDERED: BUSP15 PO (16:40)
[2018-12-23] MEDS: ZOLPIDEM TARTRATE 10 MG TABLET PO PRN (20:40)
[2018-12-23] MEDS: QUEtiapine FUMARATE 200 MG TABLET PO SCH (20:40)
[2018-12-24 05:49] VITALS: BP 114/63
[2018-12-24] MEDS: LEVOTHYROXINE SODIUM 25 MCG TABLET PO SCH (06:21)
[2018-12-24] MEDS ORDERED: LEVO25TA9 PO (07:48)
[2018-12-24] MEDS ORDERED: THIA100T67 PO (07:48)
[2018-12-24 08:00] VITALS: BP 107/65
[2018-12-24] MEDS: MULTIVITAMINS WITH MINERALS, THERAPEUTIC TABLET PO SCH (08:00)
[2018-12-24] MEDS: THIAMINE HCL 100 MG TABLET PO SCH (08:00)
[2018-12-24] MEDS: ACAMPROSATE CALCIUM 333 MG DR TABLET PO SCH ×2 (08:00→13:00)
[2018-12-24] MEDS: FOLIC ACID 1 MG TABLET PO SCH (08:00)
[2018-12-24] MEDS: METHADONE HCL 10 MG/5 ML SOLUTION ORAL.SYG PO SCH (08:01)
[2018-12-24] MEDS: BusPIRone HCL 15 MG TABLET PO SCH (09:00)
[2018-12-24] MEDS ORDERED: LOPERAMIDE HCL 2 MG CAPSULE PO PRN (17:30)
== END 2018-12-24 14:31 | disposition home or self-care (01) | DRG 750 ==
LOC: EDSTATUS 17:07 → B3A 17:43 → EDSTATUS 18:18
PROVIDERS: ADMIT Psychiatry & Neurology Psychiatry; ATTEND Psychiatry & Neurology Psychiatry
DX: F25.9 Schizoaffective disorder, unspecified (principal); Z91.19 Patient's noncompliance with other medical treatment and regimen; B19.20 Unspecified viral hepatitis C without hepatic coma; D64.9 Anemia, unspecified; F11.90 Opioid use, unspecified, uncomplicated; F15.90 Other stimulant use, unspecified, uncomplicated; F17.210 Nicotine dependence, cigarettes, uncomplicated; G89.4 Chronic pain syndrome; K21.9 Gastro-esophageal reflux disease without esophagitis; M19.90 Unspecified osteoarthritis, unspecified site; Z88.0 Allergy status to penicillin; Z79.899 Other long term (current) drug therapy
CPT/HCPCS: 83036; 84439; 84443; 86592; 87081; J3420

== ENCOUNTER 2018-12-26 14:56 | Inpatient (IN) | payer MEDICAID ==
[~2018-12-26] VITALS: Ht 185.4 cm; Wt 104.4 kg
[~2018-12-26 14:56] MED LIST changes: -BUSP30TA2 PO; -FLUO-191 PO; +LEVO25TA9 PO; -MIRT15 PO; +QUET200T29 PO; -QUET200T5 PO; +THIA100T67 PO
[2018-12-26] MEDS ORDERED: QUET200T PO (16:07)
[2018-12-26] MEDS ORDERED: BUSP15 PO (16:07)
[2018-12-26] MEDS ORDERED: ACAM333T7 PO (16:09)
[2018-12-26] MEDS ORDERED: ZOLPIDEM TARTRATE 10 MG TABLET PO PRN (16:30)
[2018-12-26 17:05] VITALS: BP 124/80
[2018-12-26 17:30] VITALS: BP 127/80
[2018-12-26] MEDS ORDERED: BusPIRone HCL 10 MG TABLET PO SCH (19:00)
[2018-12-26] MEDS: LORazepam 2 MG TABLET PO PRN (19:14)
[2018-12-26] MEDS: ChlorproMAZINE HCL 100 MG TABLET PO PRN (19:14)
[2018-12-26] MEDS ORDERED: QUEtiapine FUMARATE 200 MG TABLET PO SCH (21:00)
[2018-12-26 21:32] VITALS: BP 111/64
[2018-12-27] VITALS (9 sets, daily range): BP systolic 103–122; BP diastolic 62–82
[2018-12-27] MEDS: LEVOTHYROXINE SODIUM 25 MCG TABLET PO SCH (06:44)
[2018-12-27] MEDS: LORazepam 2 MG TABLET PO PRN ×3 (07:11→20:39)
[2018-12-27] MEDS: ChlorproMAZINE HCL 100 MG TABLET PO PRN (07:11)
[2018-12-27 07:54] LABS: BASOPHILS % (AUTO) 0.7 % (0.0-2.0); EOSINOPHILS % (AUTO) 3.1 % (1.0-6.0); HEMATOCRIT 41.3 % (41-53); HEMOGLOBIN 13.8 g/dL (13.5-17.5); LYMPHOCYTES # (AUTO) 1.9 K/uL (1.0-4.8); LYMPHOCYTES % (AUTO) 40.9 % (22.0-44.0); MEAN CORPUSCULAR HEMOGLOBIN 31.2 pg (26.0-34.0); MEAN CORPUSCULAR HGB CONC 33.5 G/dL (31.0-37.0); MEAN CORPUSCULAR VOLUME 93 fL (80-100); MONOCYTES # (AUTO) 0.5 K/uL (0.1-1.0); MONOCYTES % (AUTO) 9.7 % (2.0-9.0); NEUTROPHILS # (AUTO) 2.2 K/uL (1.8-7.7); NEUTROPHILS % (AUTO) 45.6 % (40.0-70.0); PLATELET COUNT (AUTO) 273 K/uL (150-450); RED BLOOD CELL COUNT(AUTO) 4.42 MIL/uL (4.50-5.90); RED CELL DISTRIBUTION WIDTH 13.6 % (11.5-14.5)
[2018-12-27 08:02] LABS: HEMOGLOBIN A1C 5.3 % (4.5-6.2)
[2018-12-27] MEDS ORDERED: MAG HYDROX/AL HYDROX/SIMETH ES 30 ML SUSPENSION UDCUP PO PRN ×2 (08:30)
[2018-12-27] MEDS ORDERED: ACETAMINOPHEN 325 MG TABLET PO PRN (08:30)
[2018-12-27] MEDS ORDERED: PROMETHAZINE HCL 25 MG TABLET PO PRN (08:30)
[2018-12-27] MEDS ORDERED: CYANOCOBALAMIN 1,000 MCG/ML VIAL IM ONE (08:30)
[2018-12-27] MEDS ORDERED: HydrOXYzine PAMOATE 50 MG CAPSULE PO PRN (08:30)
[2018-12-27] MEDS ORDERED: MAGNESIUM HYDROXIDE SUSPENSION 30 ML UDCUP PO PRN (08:30)
[2018-12-27] MEDS ORDERED: LOPERAMIDE HCL 2 MG CAPSULE PO PRN ×2 (08:30)
[2018-12-27] MEDS ORDERED: GuaiFENesin/D-METHORPHAN [SUGAR-FREE] 200-20MG/10 ML SYRUP UDCUP PO PRN (08:30)
[2018-12-27] MEDS ORDERED: CloNIDine HCL 0.1 MG TABLET PO PRN (08:30)
[2018-12-27] MEDS ORDERED: IBUPROFEN 600 MG TABLET PO PRN (08:30)
[2018-12-27 08:31] LABS: ALANINE AMINOTRANSFERASE 71 U/L (12-78); ALBUMIN 3.4 g/dL (3.4-5.0); ALKALINE PHOSPHATASE 91 U/L (46-116); ANION GAP 9 mmol/L (8-16); ASPARTATE AMINOTRANSFERASE 42 U/L (15-37); BILIRUBIN,TOTAL 0.5 mg/dL (0.1-1.0); CALCIUM, TOTAL 9.2 mg/dL (8.8-10.5); CARBON DIOXIDE 26 mmol/L (22-29); CHLORIDE 102 mmol/L (98-107); CHOL/HDL RATIO 4.3 (4.2-7.3); CHOLESTEROL 185 mg/dL (131-200); FREE T4 (FREE THYROXINE) 1.03 ng/dL (0.76-1.46); GLOMERULAR FILTR. RATE CALC > 60 mL/min (>60); GLUCOSE,RANDOM 94 mg/dL (70-110); HDL CHOLESTEROL 43 mg/dL (40-60); LDL CHOL (CALC.) 123 mg/dL (0-130); POTASSIUM 4.8 mmol/L (3.5-5.1); SODIUM SERUM 137 mmol/L (136-145); THYROID STIMULATING HORMONE 2.64 uIU/mL (0.36-3.74); TOTAL PROTEIN, SERUM 8.4 g/dL (6.4-8.2); TRIGLYCERIDES 93 mg/dL (15-150); UREA NITROGEN, BLOOD 16 mg/dL (7-18)
[2018-12-27] MEDS ORDERED: THIAMINE HCL 100 MG TABLET PO SCH (09:00)
[2018-12-27] MEDS: FOLIC ACID 1 MG TABLET PO SCH (10:44)
[2018-12-27] MEDS: ACAMPROSATE CALCIUM 333 MG DR TABLET PO SCH ×3 (10:44→16:36)
[2018-12-27] MEDS: THIAMINE HCL 100 MG TABLET PO SCH ×2 (10:45→16:37)
[2018-12-27] MEDS: MULTIVITAMINS WITH MINERALS, THERAPEUTIC TABLET PO SCH (10:45)
[2018-12-27] MEDS: BusPIRone HCL 15 MG TABLET PO SCH ×2 (10:45→16:36)
[2018-12-27] MEDS: METHADONE HCL 10 MG TABLET PO SCH (10:54)
[2018-12-27] MEDS: CloNIDine HCL 0.1 MG TABLET PO SCH ×3 (12:39→20:25)
[2018-12-27] MEDS: GABAPENTIN 300 MG CAPSULE PO SCH ×3 (12:39→20:25)
[2018-12-27] MEDS: QUEtiapine FUMARATE 200 MG TABLET PO SCH (20:25)
[2018-12-27] MEDS: ZOLPIDEM TARTRATE 5 MG TABLET PO PRN (21:46)
[2018-12-28] VITALS (7 sets, daily range): BP systolic 101–123; BP diastolic 66–89
[2018-12-28] MEDS: CloNIDine HCL 0.1 MG TABLET PO SCH ×4 (05:58→20:15)
[2018-12-28] MEDS: LEVOTHYROXINE SODIUM 25 MCG TABLET PO SCH (05:58)
[2018-12-28] MEDS: BusPIRone HCL 15 MG TABLET PO SCH ×2 (07:52→16:07)
[2018-12-28] MEDS: METHADONE HCL 10 MG TABLET PO SCH (07:52)
[2018-12-28] MEDS: MULTIVITAMINS WITH MINERALS, THERAPEUTIC TABLET PO SCH (07:52)
[2018-12-28] MEDS: GABAPENTIN 300 MG CAPSULE PO SCH ×3 (07:52→16:06)
[2018-12-28] MEDS: THIAMINE HCL 100 MG TABLET PO SCH ×2 (07:52→16:06)
[2018-12-28] MEDS: FOLIC ACID 1 MG TABLET PO SCH (07:52)
[2018-12-28] MEDS: ACAMPROSATE CALCIUM 333 MG DR TABLET PO SCH ×3 (07:53→16:06)
[2018-12-28] MEDS ORDERED: DULoxetine HCL 20 MG CAPSULE PO SCH (09:00)
[2018-12-28] MEDS: LORazepam 2 MG TABLET PO PRN ×2 (10:06→23:46)
[2018-12-28] MEDS: HydrOXYzine PAMOATE 50 MG CAPSULE PO PRN (12:35)
[2018-12-28] MEDS: GABAPENTIN 400 MG CAPSULE PO SCH ×2 (17:24→20:15)
[2018-12-28] MEDS: QUEtiapine FUMARATE 200 MG TABLET PO SCH (20:15)
[2018-12-28] MEDS: ZOLPIDEM TARTRATE 5 MG TABLET PO PRN (21:10)
[2018-12-29] VITALS (7 sets, daily range): BP systolic 100–132; BP diastolic 67–71
[2018-12-29] MEDS: CloNIDine HCL 0.1 MG TABLET PO SCH ×4 (06:24→21:02)
[2018-12-29] MEDS: LEVOTHYROXINE SODIUM 25 MCG TABLET PO SCH (06:25)
[2018-12-29] MEDS: ACAMPROSATE CALCIUM 333 MG DR TABLET PO SCH ×3 (08:43→17:08)
[2018-12-29] MEDS: FOLIC ACID 1 MG TABLET PO SCH (08:43)
[2018-12-29] MEDS: METHADONE HCL 10 MG TABLET PO SCH (08:43)
[2018-12-29] MEDS: BusPIRone HCL 15 MG TABLET PO SCH ×2 (08:43→17:08)
[2018-12-29] MEDS: THIAMINE HCL 100 MG TABLET PO SCH ×2 (08:44→17:09)
[2018-12-29] MEDS: MULTIVITAMINS WITH MINERALS, THERAPEUTIC TABLET PO SCH (08:44)
[2018-12-29] MEDS: DULoxetine HCL 30 MG CAPSULE PO SCH (08:49)
[2018-12-29] MEDS: GABAPENTIN 400 MG CAPSULE PO SCH ×4 (09:19→21:02)
[2018-12-29] MEDS: LORazepam 2 MG TABLET PO PRN (10:13)
[2018-12-29] MEDS: QUEtiapine FUMARATE 200 MG TABLET PO SCH (21:02)
[2018-12-29] MEDS: ZOLPIDEM TARTRATE 5 MG TABLET PO PRN (21:33)
[2018-12-30 00:24] VITALS: BP 137/78
[2018-12-30] MEDS: LEVOTHYROXINE SODIUM 25 MCG TABLET PO SCH (06:00)
[2018-12-30] MEDS: CloNIDine HCL 0.1 MG TABLET PO SCH ×4 (06:00→21:08)
[2018-12-30] MEDS: LORazepam 2 MG TABLET PO PRN ×3 (07:09→20:57)
[2018-12-30 08:15] VITALS: BP 113/68
[2018-12-30] MEDS: FOLIC ACID 1 MG TABLET PO SCH (08:43)
[2018-12-30] MEDS: ACAMPROSATE CALCIUM 333 MG DR TABLET PO SCH ×3 (08:43→16:21)
[2018-12-30] MEDS: GABAPENTIN 400 MG CAPSULE PO SCH ×4 (08:43→20:43)
[2018-12-30] MEDS: BusPIRone HCL 15 MG TABLET PO SCH ×2 (08:43→16:20)
[2018-12-30] MEDS: METHADONE HCL 10 MG TABLET PO SCH (08:44)
[2018-12-30] MEDS: MULTIVITAMINS WITH MINERALS, THERAPEUTIC TABLET PO SCH (08:44)
[2018-12-30] MEDS: THIAMINE HCL 100 MG TABLET PO SCH ×2 (08:44→16:21)
[2018-12-30] MEDS: DULoxetine HCL 30 MG CAPSULE PO SCH (08:45)
[2018-12-30] MEDS: HydrOXYzine PAMOATE 50 MG CAPSULE PO PRN ×2 (15:57→20:57)
[2018-12-30 16:19] VITALS: BP 129/74
[2018-12-30 16:41] VITALS: BP 129/74
[2018-12-30] MEDS: QUEtiapine FUMARATE 200 MG TABLET PO SCH (20:42)
[2018-12-30 21:09] VITALS: BP 126/73
[2018-12-30] MEDS: ZOLPIDEM TARTRATE 5 MG TABLET PO PRN (21:53)
[2018-12-31] MEDS: CloNIDine HCL 0.1 MG TABLET PO SCH ×4 (06:18→21:11)
[2018-12-31 06:21] VITALS: BP 106/63
[2018-12-31] MEDS: LEVOTHYROXINE SODIUM 25 MCG TABLET PO SCH (06:26)
[2018-12-31] MEDS: HydrOXYzine PAMOATE 50 MG CAPSULE PO PRN (07:18)
[2018-12-31] MEDS: LORazepam 2 MG TABLET PO PRN ×2 (07:18→12:01)
[2018-12-31] MEDS: BusPIRone HCL 15 MG TABLET PO SCH ×2 (08:14→16:33)
[2018-12-31] MEDS: THIAMINE HCL 100 MG TABLET PO SCH ×2 (08:14→16:33)
[2018-12-31] MEDS: ACAMPROSATE CALCIUM 333 MG DR TABLET PO SCH ×3 (08:14→16:33)
[2018-12-31] MEDS: MULTIVITAMINS WITH MINERALS, THERAPEUTIC TABLET PO SCH (08:14)
[2018-12-31] MEDS: GABAPENTIN 400 MG CAPSULE PO SCH ×2 (08:14→12:01)
[2018-12-31] MEDS: FOLIC ACID 1 MG TABLET PO SCH (08:14)
[2018-12-31] MEDS: DULoxetine HCL 30 MG CAPSULE PO SCH (08:14)
[2018-12-31 09:02] VITALS: BP 110/60
[2018-12-31] MEDS ORDERED: GABAPENTIN 300 MG CAPSULE PO PRN (16:15)
[2018-12-31 16:31] VITALS: BP 116/65
[2018-12-31] MEDS: HALOPERIDOL 5 MG TABLET PO PRN (16:33)
[2018-12-31] MEDS: GABAPENTIN 300 MG CAPSULE PO SCH ×2 (16:33→21:11)
[2018-12-31 21:10] VITALS: BP 102/72
[2018-12-31] MEDS: QUEtiapine FUMARATE 200 MG TABLET PO SCH (21:11)
[2018-12-31] MEDS: ZOLPIDEM TARTRATE 5 MG TABLET PO PRN (22:33)
[2019-01-01] VITALS (7 sets, daily range): BP systolic 100–135; BP diastolic 64–100
[2019-01-01] MEDS: HALOPERIDOL 5 MG TABLET PO PRN ×4 (00:27→15:33)
[2019-01-01] MEDS: CloNIDine HCL 0.1 MG TABLET PO SCH ×4 (06:00→21:34)
[2019-01-01] MEDS: LEVOTHYROXINE SODIUM 25 MCG TABLET PO SCH (06:51)
[2019-01-01] MEDS: BusPIRone HCL 15 MG TABLET PO SCH ×2 (08:00→16:09)
[2019-01-01] MEDS: THIAMINE HCL 100 MG TABLET PO SCH ×2 (08:00→16:10)
[2019-01-01] MEDS: MULTIVITAMINS WITH MINERALS, THERAPEUTIC TABLET PO SCH (08:00)
[2019-01-01] MEDS: GABAPENTIN 300 MG CAPSULE PO SCH ×4 (08:00→20:50)
[2019-01-01] MEDS: DULoxetine HCL 20 MG CAPSULE PO SCH (08:00)
[2019-01-01] MEDS: ACAMPROSATE CALCIUM 333 MG DR TABLET PO SCH ×3 (08:00→16:10)
[2019-01-01] MEDS: FOLIC ACID 1 MG TABLET PO SCH (08:00)
[2019-01-01] MEDS: QUEtiapine FUMARATE 200 MG TABLET PO SCH (20:49)
[2019-01-02] MEDS: ZOLPIDEM TARTRATE 5 MG TABLET PO PRN ×2 (00:01→21:46)
[2019-01-02 01:41] VITALS: BP 112/79
[2019-01-02] MEDS: CloNIDine HCL 0.1 MG TABLET PO SCH ×4 (06:26→20:51)
[2019-01-02] MEDS: LEVOTHYROXINE SODIUM 25 MCG TABLET PO SCH (06:26)
[2019-01-02] MEDS: THIAMINE HCL 100 MG TABLET PO SCH ×2 (08:20→16:55)
[2019-01-02] MEDS: FOLIC ACID 1 MG TABLET PO SCH (08:21)
[2019-01-02] MEDS: GABAPENTIN 300 MG CAPSULE PO SCH ×4 (08:21→20:50)
[2019-01-02] MEDS: ACAMPROSATE CALCIUM 333 MG DR TABLET PO SCH ×3 (08:21→16:55)
[2019-01-02] MEDS: DULoxetine HCL 20 MG CAPSULE PO SCH (08:21)
[2019-01-02] MEDS: BusPIRone HCL 15 MG TABLET PO SCH ×2 (08:22→16:55)
[2019-01-02] MEDS: HALOPERIDOL 5 MG TABLET PO PRN ×3 (08:22→14:59)
[2019-01-02 08:25] VITALS: BP 112/67
[2019-01-02] MEDS: MULTIVITAMINS WITH MINERALS, THERAPEUTIC TABLET PO SCH (08:59)
[2019-01-02] MEDS ORDERED: METHADONE HCL 10 MG TABLET PO ONE (09:45)
[2019-01-02 16:24] VITALS: BP 106/66
[2019-01-02 16:54] VITALS: BP 110/72
[2019-01-02] MEDS: QUEtiapine FUMARATE 200 MG TABLET PO SCH (20:50)
[2019-01-03 06:09] VITALS: BP 106/76
[2019-01-03] MEDS: CloNIDine HCL 0.1 MG TABLET PO SCH (06:20)
[2019-01-03] MEDS: LEVOTHYROXINE SODIUM 25 MCG TABLET PO SCH (06:35)
[2019-01-03] MEDS: BusPIRone HCL 15 MG TABLET PO SCH ×2 (08:41→16:21)
[2019-01-03] MEDS: FOLIC ACID 1 MG TABLET PO SCH (08:42)
[2019-01-03] MEDS: ACAMPROSATE CALCIUM 333 MG DR TABLET PO SCH ×2 (08:42→12:26)
[2019-01-03] MEDS: DULoxetine HCL 20 MG CAPSULE PO SCH (08:42)
[2019-01-03] MEDS: GABAPENTIN 300 MG CAPSULE PO SCH ×3 (08:43→16:21)
[2019-01-03] MEDS: MULTIVITAMINS WITH MINERALS, THERAPEUTIC TABLET PO SCH (08:43)
[2019-01-03] MEDS: THIAMINE HCL 100 MG TABLET PO SCH ×2 (08:43→16:21)
[2019-01-03 08:53] VITALS: BP 126/66
[2019-01-03] MEDS ORDERED: METHADONE HCL 10 MG TABLET PO SCH (09:00)
[2019-01-03] MEDS: HALOPERIDOL 5 MG TABLET PO PRN ×2 (09:02→12:47)
[2019-01-03] MEDS ORDERED: NALT50TA PO ×2 (14:57→15:28)
[2019-01-03 16:15] VITALS: BP 139/84
[2019-01-04] MEDS ORDERED: NALTREXONE HCL 50 MG TABLET PO SCH (09:00)
[2019-01-06] MEDS ORDERED: METHADONE HCL 10 MG TABLET PO SCH (09:00)
== END 2019-01-03 17:40 | disposition home or self-care (01) | DRG 750 ==
LOC: B3A 16:32 → B2S 12-27 12:30
PROVIDERS: ADMIT Psychiatry & Neurology Psychiatry; ATTEND Psychiatry & Neurology Psychiatry
DX: F25.1 Schizoaffective disorder, depressive type (principal); R45.851 Suicidal ideations; Z59.0 Homelessness; F12.20 Cannabis dependence, uncomplicated; D50.9 Iron deficiency anemia, unspecified; B18.2 Chronic viral hepatitis C; F15.10 Other stimulant abuse, uncomplicated; E03.9 Hypothyroidism, unspecified; F11.23 Opioid dependence with withdrawal; K21.9 Gastro-esophageal reflux disease without esophagitis; Z91.5 Personal history of self-harm; Z91.19 Patient's noncompliance with other medical treatment and regimen
CPT/HCPCS: 83036; 84439; 84443; 87081; J3420